=== PATIENT | female | born 1935 | race Caucasian/White ===

== ENCOUNTER 2016-08-05 08:21 | Outpatient (RCR) | payer MEDICARE, OTHER ==
[~2016-08-05 08:21] MED LIST: ALBU17AE3 IH; BNZ10T PO; CALTRATE 600 +1 EACH PO; FLUT12AE4 IH; MNTL10T PO; MULT-963 PO
[2016-08-05 09:44] LABS: BASOPHILS # (AUTO) 0.1 10^3/uL (0.0-0.1); BASOPHILS % (AUTO) 1 % (0-10); EOSINOPHILS # (AUTO) 0.3 10^3/uL (0.0-0.3); EOSINOPHILS % (AUTO) 4 % (0-10); LYMPHOCYTES # (AUTO) 1.6 X 10^3 (1.0-4.0); LYMPHOCYTES % (AUTO) 23 % (12-44); MEAN CORPUSCULAR HEMOGLOBIN 29 PG (25-34); MEAN CORPUSCULAR HGB CONC 32 G/DL (32-36); MEAN CORPUSCULAR VOLUME 91 FL (80-99); MONOCYTES # (AUTO) 0.5 X 10^3 (0.0-1.0); MONOCYTES % (AUTO) 7 % (0-12); NEUTROPHILS # (AUTO) 4.6 X 10^3 (1.8-7.8); NEUTROPHILS % (AUTO) 65 % (42-75); PLATELET COUNT 261 10^3/uL (130-400); RED CELL DISTRIBUTION WIDTH 13.8 % (10.0-14.5); WHITE BLOOD COUNT 7.1 10^3/uL (4.3-11.0)
[2016-08-05 10:12] LABS: ALBUMIN 4.2 G/DL (3.2-4.5); BILIRUBIN,TOTAL 0.6 MG/DL (0.1-1.0); CALCIUM 9.9 MG/DL (8.5-10.1); CREATININE SERUM 0.97 MG/DL (0.60-1.30); POTASSIUM 4.4 MMOL/L (3.6-5.0); TOTAL PROTEIN 6.5 G/DL (6.4-8.2)
== END 2016-11-03 | disposition home or self-care (01) ==
LOC: ONC 08:21
PROVIDERS: ATTEND Internal Medicine Hematology & Oncology
DX: Z08 Encounter for follow-up examination after completed treatment for malignant neoplasm (principal); Z85.3 Personal history of malignant neoplasm of breast; I10 Essential (primary) hypertension; E78.5 Hyperlipidemia, unspecified; J45.909 Unspecified asthma, uncomplicated; Z90.11 Acquired absence of right breast and nipple; E66.9 Obesity, unspecified; Z68.37 Body mass index [BMI] 37.0-37.9, adult; Z79.899 Other long term (current) drug therapy
CPT/HCPCS: 36415; 80053; 85025; 86300; 99213

== ENCOUNTER → 2017-01-14 | Outpatient (CLI) | payer MEDICARE, OTHER ==
--- NOTE | 2017-01-14 10:55 | Diagnostic Imaging Report ---
INDICATION: Ultrasound of the aorta. INDICATION: Hypertension. FINDINGS: The proximal abdominal aorta is obscured by bowel gas. The mid abdominal aorta is 2.1 and distally is 2.3. The right common iliac is 1.1 and the left common iliac artery is 1.1 cm in caliber. Color Doppler demonstrates patency. IMPRESSION: No evidence of aneurysm. Dictated by: Dictated on workstation # [id number]
== END ==
LOC: RAD 09:01
DX: I10 Essential (primary) hypertension (principal)
CPT/HCPCS: 76775

== ENCOUNTER → 2017-08-04 | Outpatient (CLI) | payer MEDICARE, OTHER ==
--- NOTE | 2017-08-04 14:30 | Diagnostic Imaging Report ---
EXAMINATION: Left breast diagnostic mammogram with tomography. The current study was also evaluated with a Computer Aided Detection (CAD) system. COMPARISON: 08/02/2016. INDICATION: Followup focal asymmetry in the outer aspect of the left breast. FINDINGS: The previously seen focal asymmetry in the outer aspect of the left breast posteriorly is similar to the previous exam measuring about 1 cm with suggestion of central lucency. This may relate to an intramammary lymph node. No change from the previous study is seen. Scattered fibroglandular densities are noted. Benign appearing calcifications are seen. IMPRESSION: Stable likely benign nodule along the outer aspect of the left breast with central lucency, in favor of an intramammary lymph node. A followup mammogram in 12 months is recommended to ensure longer term stability. ACR BI-RADS Category 3: Probably benign findings. Result letter will be mailed to the patient. Note: At least 10% of breast cancer is not imaged by mammography. Dictated by: Dictated on workstation # [id number]
== END ==
LOC: RAD 12:27
PROVIDERS: ATTEND Internal Medicine Hematology & Oncology
DX: N63.20 Unspecified lump in the left breast, unspecified quadrant (principal); Z85.3 Personal history of malignant neoplasm of breast

== ENCOUNTER 2017-08-07 08:32 | Outpatient (RCR) | payer MEDICARE, OTHER ==
[2017-08-07 09:03] LABS: BASOPHILS # (AUTO) 0.1 10^3/uL (0.0-0.1); BASOPHILS % (AUTO) 1 % (0-10); EOSINOPHILS # (AUTO) 0.2 10^3/uL (0.0-0.3); EOSINOPHILS % (AUTO) 4 % (0-10); HEMATOCRIT 38 % (35-52); HEMOGLOBIN 12.6 G/DL (11.5-16.0); LYMPHOCYTES # (AUTO) 1.8 X 10^3 (1.0-4.0); LYMPHOCYTES % (AUTO) 28 % (12-44); MEAN CORPUSCULAR HEMOGLOBIN 30 PG (25-34); MEAN CORPUSCULAR HGB CONC 33 G/DL (32-36); MEAN CORPUSCULAR VOLUME 89 FL (80-99); MEAN PLATELET VOLUME 10.5 FL (7.4-10.4); MONOCYTES # (AUTO) 0.5 X 10^3 (0.0-1.0); MONOCYTES % (AUTO) 8 % (0-12); NEUTROPHILS # (AUTO) 3.8 X 10^3 (1.8-7.8); NEUTROPHILS % (AUTO) 60 % (42-75); PLATELET COUNT 240 10^3/uL (130-400); RED BLOOD COUNT 4.22 10^6/uL (4.35-5.85); RED CELL DISTRIBUTION WIDTH 13.3 % (10.0-14.5); WHITE BLOOD COUNT 6.4 10^3/uL (4.3-11.0)
[2017-08-07 09:25] LABS: ALBUMIN 4.1 GM/DL (3.2-4.5); BILIRUBIN,TOTAL 0.7 MG/DL (0.1-1.0); CALCIUM 10.3 MG/DL (8.5-10.1); CREATININE SERUM 0.98 MG/DL (0.60-1.30); POTASSIUM 4.4 MMOL/L (3.6-5.0); TOTAL PROTEIN 6.6 GM/DL (6.4-8.2)
== END 2017-11-05 | disposition home or self-care (01) ==
LOC: ONC 08:32
PROVIDERS: ATTEND Internal Medicine Hematology & Oncology
DX: Z08 Encounter for follow-up examination after completed treatment for malignant neoplasm (principal); Z85.3 Personal history of malignant neoplasm of breast; I10 Essential (primary) hypertension; E78.5 Hyperlipidemia, unspecified; J45.909 Unspecified asthma, uncomplicated; Z90.11 Acquired absence of right breast and nipple; E66.9 Obesity, unspecified; Z68.37 Body mass index [BMI] 37.0-37.9, adult; Z79.899 Other long term (current) drug therapy
CPT/HCPCS: 36415; 80053; 85025

== ENCOUNTER → 2018-07-23 | Outpatient (CLI) | payer MEDICARE, BC, OTHER ==
--- NOTE | 2018-07-23 08:28 | Diagnostic Imaging Report ---
Indication: 12 month followup of left breast density. Correlation is made with prior mammogram from 08/04/2017 and 08/02/2016. 2-D and 3-D unilateral left diagnostic mammography was performed with CAD. Scattered fibroglandular densities in the left breast are noted. Area of density in the upper and outer left breast posterior depth appears stable. This appears less prominent on today's study may represent fibroglandular tissue. No mass or malignant-appearing microcalcifications are seen. Extensive vascular calcifications in the left breast are noted. Left axilla is unremarkable. Impression: BI-RADS category 2 Stable left mammogram. No mammographic features suspicious for malignancy are identified. Patient may return to routine annual screening. ACR BI-RADS Category 2: Benign findings. Result letter will be mailed to the patient. Note: At least 10% of breast cancer is not imaged by mammography. Dictated by: Dictated on workstation # [id number]
== END ==
LOC: RAD 07:31
DX: N63.20 Unspecified lump in the left breast, unspecified quadrant (principal); R92.2 Inconclusive mammogram

== ENCOUNTER → 2019-03-03 | Outpatient (CLI) | payer MEDICARE, BC, OTHER ==
[~2019-03-03] VITALS: Ht 165.1 cm; Wt 87.1 kg
[~2019-03-03] MED LIST changes: +NS IV 1000 ML 1,000 ML IV ONE; +NS IV 1000 ML 1,000 ML ONE
[2019-03-03 13:00] VITALS: BP 131/70
== END ==
LOC: SDC 12:52
DX: E87.1 Hypo-osmolality and hyponatremia (principal)
CPT/HCPCS: 96360

== ENCOUNTER → 2019-03-03 | Outpatient (CLI) | payer MEDICARE, BC, OTHER ==
[~2019-03-03] MED LIST changes: -NS IV 1000 ML 1,000 ML IV ONE; -NS IV 1000 ML 1,000 ML ONE
--- NOTE | 2019-03-03 15:32 | Diagnostic Imaging Report ---
INDICATION: Cough and shortness of breath. FINDINGS: The heart size is within normal limits and stable when compared to 01/30/2013. As noted on the prior exam, there is blunting of both costophrenic angles. This may well be secondary to pleural thickening as opposed to small effusions. There is no evidence for overt failure or pneumonia. There is a prominent 8.2 x 9.1 cm air-fluid level in the retrocardiac region. Most likely, this is secondary to a hiatal hernia. The mediastinum is not widened. The osseous structures are intact. IMPRESSION: 1. The blunted appearance of the costophrenic angles is more likely due to pleural thickening than to small effusions. There is no acute cardiopulmonary abnormality noted otherwise. 2. There is a prominent hiatal hernia. Dictated by: Dictated on workstation # [id number]
== END ==
LOC: RAD 14:45
DX: K44.9 Diaphragmatic hernia without obstruction or gangrene (principal); R06.2 Wheezing; R06.02 Shortness of breath
CPT/HCPCS: 71046

== ENCOUNTER → 2019-08-11 | Outpatient (CLI) | payer MEDICARE, BC, OTHER | LOC: CARD 08:47 | PROVIDERS: ATTEND Internal Medicine Interventional Cardiology | DX: I08.3 Combined rheumatic disorders of mitral, aortic and tricuspid valves (principal); I11.9 Hypertensive heart disease without heart failure; I48.19 Other persistent atrial fibrillation; E78.5 Hyperlipidemia, unspecified | CPT/HCPCS: 93306 ==

== ENCOUNTER → 2019-08-11 | Outpatient (CLI) | payer MEDICARE, BC, OTHER ==
--- NOTE | 2019-08-11 11:46 | Diagnostic Imaging Report ---
INDICATION: Routine screening. Comparison is made with prior mammogram from 07/23/2018 and 08/04/2017. Unilateral left 2-D and 3-D screening mammography was performed with CAD. Scattered fibroglandular densities are identified in the left breast. Extensive vascular calcifications of the left breast are noted. There are occasional benign parenchymal calcifications as well. No mass or malignant appearing microcalcifications are seen. Left axilla is unremarkable. IMPRESSION: BI-RADS Category 2 No mammographic features suspicious for malignancy are identified. ACR BI-RADS Category 2: Benign findings. Result letter will be mailed to the patient. Note: At least 10% of breast cancer is not imaged by mammography. Dictated by: Dictated on workstation # [id number]
== END ==
LOC: RAD 08:55
DX: Z12.31 Encounter for screening mammogram for malignant neoplasm of breast (principal)

== ENCOUNTER → 2020-08-14 | Outpatient (CLI) | payer MEDICARE, BC, OTHER ==
--- NOTE | 2020-08-14 10:42 | Diagnostic Imaging Report ---
INDICATION: Screening. The current study was also evaluated with a Computer Aided Detection (CAD) system. 3-D Tomographic imaging was also performed. Comparison made with prior examination of 08/11/2019, 07/23/2018, 08/04/2017 FINDINGS: There are scattered fibroglandular densities in the left breast. There are extensive vascular calcifications. They are benign type calcifications. There is no dominant mass, spiculated lesions or suspicious calcification identified. Skin, nipples and axillary unremarkable. IMPRESSION: Category 2 benign. ACR BI-RADS Category 2: Benign findings. Result letter will be mailed to the patient. Note: At least 10% of breast cancer is not imaged by mammography. Dictated by: Dictated on workstation # [id number]
== END ==
LOC: RAD 08:54
DX: Z12.31 Encounter for screening mammogram for malignant neoplasm of breast (principal)
CPT/HCPCS: 77063

== ENCOUNTER → 2021-12-19 | Outpatient (CLI) | payer MEDICARE, BC, OTHER ==
[2021-12-19 09:30] LABS: BASOPHILS # (AUTO) 0.1 10^3/uL (0.0-0.1); BASOPHILS % (AUTO) 1 % (0-10); EOSINOPHILS # (AUTO) 0.5 10^3/uL (0.0-0.3); EOSINOPHILS % (AUTO) 5 % (0-10); HEMATOCRIT 40 % (35-52); HEMOGLOBIN 12.7 g/dL (11.5-16.0); LYMPHOCYTES # (AUTO) 2.6 10^3/uL (1.0-4.0); LYMPHOCYTES % (AUTO) 24 % (12-44); MEAN CORPUSCULAR HEMOGLOBIN 28 pg (25-34); MEAN CORPUSCULAR HGB CONC 32 g/dL (32-36); MEAN CORPUSCULAR VOLUME 90 fL (80-99); MEAN PLATELET VOLUME 10.9 fL (9.0-12.2); MONOCYTES # (AUTO) 0.8 10^3/uL (0.0-1.0); MONOCYTES % (AUTO) 7 % (0-12); NEUTROPHILS # (AUTO) 6.6 10^3/uL (1.8-7.8); NEUTROPHILS % (AUTO) 63 % (42-75); PLATELET COUNT 230 10^3/uL (130-400); WHITE BLOOD COUNT 10.5 10^3/uL (4.3-11.0)
[2021-12-19 09:51] LABS: ALBUMIN 4.1 GM/DL (3.2-4.5); BILIRUBIN,TOTAL 0.6 MG/DL (0.1-1.0); CALCIUM 10.4 MG/DL (8.5-10.1); CREATININE SERUM 1.03 MG/DL (0.60-1.30); POTASSIUM 3.8 MMOL/L (3.6-5.0); TOTAL PROTEIN 6.6 GM/DL (6.4-8.2)
== END ==
LOC: LAB 09:06
DX: I10 Essential (primary) hypertension (principal); I48.91 Unspecified atrial fibrillation; R06.02 Shortness of breath; E78.00 Pure hypercholesterolemia, unspecified
CPT/HCPCS: 36415; 80053; 80061; 80162; 85025

== ENCOUNTER 2022-05-31 21:19 | Emergency (ER) | payer MEDICARE, BC, OTHER ==
[~2022-05-31] VITALS: Ht 165 cm; Wt 48.0 kg
--- NOTE | 2022-05-31 21:37 | ED GI ---
General Stated Complaint: VOMITING BLOOD History of Present Illness Date Seen by Provider: May 31, 2022 Time Seen by Provider: 21:37 Initial Comments 86 yr F with PMH of Asthma/ mastectomy/ dysphagia/ heart murnur, is here with c/o 1 episode of vomiting blood today evening. Pt states she always feels like something is stuck when she eats, and do to this, she reduced her food intake and has lost approximately 80 lbs in the past 1 year. Today she had some barbecue beans and cornbread for dinner and vomited after, and she noticed blood in the vomit. She is unable to say how much blood or describe it.Denies dizziness, chest pain, blood in stool or urine, abdominal pain, diarrhea, fever, cough. Allergies and Home Medications Allergies Coded Allergies: codeine (Verified Allergy, Mild, 11/29/05) ibuprofen (Unverified Adverse Reaction, Unknown, 03/03/19) Patient Home Medication List Home Medication List Reviewed: Yes Albuterol (Proventil) 17 Gm Inh, 2 SPRAY IH PRN, (Reported) Entered as Reported by: MYRNA MASSEY on 01/30/13 1233 Benazepril Hcl (Lotensin 10 Mg) 10 Mg Tablet, 10 MG PO DAILY, (Reported) Entered as Reported by: MYRNA MASSEY on 01/30/13 1233 Calcium Carbonate/Vitamin D3 (Caltrate 600 + D Chewable Tab) 1 Each Tab.chew, 1 EACH PO DAILY, (Reported) Entered as Reported by: MYRNA MASSEY on 01/30/13 1233 Fluticasone/Salmeterol (Advair Hfa 115-21 Mcg Inhaler) 12 Gm Aer.w.adap, 2 PUFF IH BID, (Reported) Entered as Reported by: MYRNA MASSEY on 01/30/13 1233 Montelukast Sodium (Singulair 10 Mg) 10 Mg Tablet, 1 TAB PO DAILY, (Reported) Entered as Reported by: MYRNA MASSEY on 01/30/13 1233 Multivitamin (Multi-Vitamin Daily) 1 Each Tablet, 1 EACH PO DAILY, (Reported) Entered as Reported by: MYRNA MASSEY on 01/30/13 1233 Review of Systems Review of Systems Constitutional: no symptoms reported EENTM: No Symptoms Reported Respiratory: No Symptoms Reported Cardiovascular: No Symptoms Reported Gastrointestinal: Other (hemetemesis) Genitourinary: No Symptoms Reported Musculoskeletal: no symptoms reported Skin: no symptoms reported Psychiatric/Neurological: No Symptoms Reported Endocrine: No Symptoms Reported Hematologic/Lymphatic: No Symptoms Reported Past Erhfvjv-Xzblzy-Zjqmls Hx Past Medical History Asthma Breast Physical Exam Vital Signs Vital Signs - First Documented 05/31/22 21:37 Temp 36.4 Pulse 61 Resp 16 B/P (MAP) 196/97 (130) Pulse Ox 94 O2 Delivery Room Air Capillary Refill : Height/Weight/BMI Height: 5'5.00" Weight: 192lbs. 0.0oz. 87.775080zb; BMI Method:Stated General Appearance: WD/WN, no apparent distress HEENT: PERRL/EOMI, normal ENT inspection Neck: non-tender, full range of motion, supple, normal inspection Respiratory: chest non-tender, lungs clear, normal breath sounds Cardiovascular: normal peripheral pulses, regular rate, rhythm Gastrointestinal: normal bowel sounds, non tender, soft, no organomegaly, no pulsatile mass Extremities: normal range of motion Back: normal inspection, no CVA tenderness, no vertebral tenderness Neurologic/Psychiatric: alert, normal mood/affect, oriented x 3 Skin: normal color Lymphatic: no adenopathy Progress/Results/Core Measures Results/Orders Lab Results Laboratory Tests Test 05/31/22 21:43 Range/Units White Blood Count 12.0 H 4.3-11.0 10^3/uL Red Blood Count 4.73 3.80-5.11 10^6/uL Hemoglobin 14.1 11.5-16.0 g/dL Hematocrit 43 35-52 % Mean Corpuscular Volume 91 80-99 fL Mean Corpuscular Hemoglobin 30 25-34 pg Mean Corpuscular Hemoglobin Concent 33 32-36 g/dL Red Cell Distribution Width 13.2 10.0-14.5 % Platelet Count 248 130-400 10^3/uL Mean Platelet Volume 10.9 9.0-12.2 fL Immature Granulocyte % (Auto) 0 % Neutrophils (%) (Auto) 82 H 42-75 % Lymphocytes (%) (Auto) 13 12-44 % Monocytes (%) (Auto) 4 0-12 % Eosinophils (%) (Auto) 1 0-10 % Basophils (%) (Auto) 1 0-10 % Neutrophils # (Auto) 9.8 H 1.8-7.8 10^3/uL Lymphocytes # (Auto) 1.6 1.0-4.0 10^3/uL Monocytes # (Auto) 0.4 0.0-1.0 10^3/uL Eosinophils # (Auto) 0.1 0.0-0.3 10^3/uL Basophils # (Auto) 0.1 0.0-0.1 10^3/uL Immature Granulocyte # (Auto) 0.0 0.0-0.1 10^3/uL Prothrombin Time 13.1 12.2-14.7 SEC INR Comment 1.0 0.8-1.4 Activated Partial Thromboplast Time 28 24-35 SEC D-Dimer 0.60 H 0.00-0.49 UG/ML Sodium Level 140 135-145 MMOL/L Potassium Level 4.4 3.6-5.0 MMOL/L Chloride Level 95 L 98-107 MMOL/L Carbon Dioxide Level 30 21-32 MMOL/L Anion Gap 15 H 5-14 MMOL/L Blood Urea Nitrogen 13 7-18 MG/DL Creatinine 1.06 0.60-1.30 MG/DL Estimat Glomerular Filtration Rate 51 BUN/Creatinine Ratio 12 Glucose Level 132 H 70-105 MG/DL Calcium Level 10.9 H 8.5-10.1 MG/DL Corrected Calcium 8.5-10.1 MG/DL Magnesium Level 2.0 1.6-2.4 MG/DL Total Bilirubin 0.7 0.1-1.0 MG/DL Aspartate Amino Transf (AST/SGOT) 24 5-34 U/L Alanine Aminotransferase (ALT/SGPT) 16 0-55 U/L Alkaline Phosphatase 75 40-136 U/L Total Protein 7.8 6.4-8.2 GM/DL Albumin 4.7 H 3.2-4.5 GM/DL Serum Alcohol < 10 <10 MG/DL My Orders Orders - MENA REAVES MD Chest 1 View, Ap/Pa Only (05/31/22 21:38) Alcohol (05/31/22 21:38) Cbc With Automated Diff (05/31/22 21:38) Comprehensive Metabolic Panel (05/31/22 21:38) Fibrin Degradation Products (05/31/22 21:38) Magnesium (05/31/22 21:38) Ua Culture If Indicated (05/31/22 21:38) Type And Screen (05/31/22 21:38) Occult Blood Stool (05/31/22 21:39) Pantoprazole Injection (Protonix Injecti (05/31/22 22:00) Ns (Ivpb) (Sodium C... W/Pantoprazole In (05/31/22 21:50) Protime With Inr (05/31/22 22:57) Partial Thromboplastin Time (05/31/22 22:57) Ct [facility]iley Chest/Noang Abd-Pelv W (05/31/22 22:59) Iohexol Injection (Omnipaque 350 Mg/Ml 1 (06/01/22 01:45) Received Contrast (Hold Metformin- Contr (06/01/22 01:45) Ns (Ivpb) (Sodium Chloride 0.9% Ivpb Bag (06/01/22 01:45) Medications Given in ED Current Medications Medications Dose Ordered Sig/Tari Route Start Time Stop Time Status Last Admin Dose Admin Iohexol 100 ml ONCE ONCE IV 06/01/22 01:45 06/01/22 01:48 DC 06/01/22 01:37 60 ML Pantoprazole 40 mg ONCE ONCE IV 05/31/22 22:00 05/31/22 22:01 DC 05/31/22 22:20 40 MG Sodium Chloride 100 ml ONCE ONCE IV 06/01/22 01:45 06/01/22 01:48 DC 06/01/22 01:37 80 ML Vital Signs/I&O 05/31/22 05/31/22 06/01/22 21:37 23:04 01:00 Temp 36.4 Pulse 61 59 65 Resp 16 18 16 B/P (MAP) 196/97 (130) 178/78 (111) 158/80 (106) Pulse Ox 94 93 93 O2 Delivery Room Air Room Air Room Air Progress Progress Note : Progress Note 1. UPPER GI BLEED work up: HIATAL HERNIA - CXR: unremarkable - CT ABD & PELVIS: Hiatal hernia, otherwise unremarkable - UA normal - CBC: Hb is stable - CMP unremarkable - Protonix bolus and drip in ER - FOB negative - Likely not a true GI bleed - Follow up with surgery clinic in 3 to 7 days and with PCP within 7 days - Adequate hydration advised - Protonix prescription for 14 days -The patient was seen in the ED, and treated appropriately to presentation at a specific point in time. Patient is informed that there is a possibility that disease and illness can evolve and change in acuity rapidly or slowly after patient is discharged from the ER. Precautionary advice given to the patient for immediate return to ER if symptoms worsen or do not resolve, and to seek emergency care sooner rather than later. Pt also advised on the importance of PCP follow up and compliance with management and follow up plan with PCP and/or specialist, as this is part of the management plan. Pt verbally expressed understanding. 2. ELEVATED D-DIMER: RULE OUT MASS IN ESOPHAGUS - D-dimer is slightly elevated:0.60 - CTA CHEST negative for PE and only shows a hiatal hernia Diagnostic Imaging Diagonstic Imaging: Xray, CT Plain Films/CT/US/NM/MRI: chest, abdomen Comments [facility] [place], [place] NAME: JO LOPEZ [facility] REC#: [id number] PT STATUS: REG ER : 1935 PHYSICIAN: MENA REAVES MD ADMIT DATE: 05/31/22/ER Draft Date of Exam:05/31/22 CHEST 1 VIEW, AP/PA ONLY INDICATION: Gastrointestinal bleeding. EXAMINATION: AP view of the chest was obtained. COMPARISON: Study of 03/03/2019. There is cardiomegaly with increase in pulmonary vascularity indicating venous congestion. There is mild increase in interstitial markings throughout the lungs that may be due to edema. Mild blunting of the costophrenic sulci may be chronic. IMPRESSION: Cardiomegaly and mild pulmonary venous congestion and possible interstitial edema. This may be on the basis of congestive heart failure or possible hypervolemia and clinical correlation would be of use. Dictated on workstation # [id number] Dict: 05/31/225 Trans: 05/31/222219 [facility] [id number] Interpreted by: KLAUDIA PEREA MD Electronically signed by: Departure Impression Primary Impression: Hiatal hernia Disposition: 01 HOME, SELF-CARE Condition: Stable Departure-Patient Inst. Referrals: LATASHA MEZA MD NO,LOCAL PHYSICIAN (PCP) Primary Care Physician Patient Instructions: Hiatal Hernia Add. Discharge Instructions: - Follow up with surgery clinic in 3 to 7 days and with PCP within 7 days - Adequate hydration advised - Protonix prescription for 14 days - Return to ER if symptoms do not improve Scripts Pantoprazole Sodium (Protonix) 40 Mg 40 MG PO DAILY for 14 Days, #14 TAB Prov: MENA REAVES MD 06/01/22 MENA REAVES MD May 31, 2022 21:37
[2022-05-31 21:50] LABS: BASOPHILS # (AUTO) 0.1 10^3/uL (0.0-0.1); BASOPHILS % (AUTO) 1 % (0-10); EOSINOPHILS # (AUTO) 0.1 10^3/uL (0.0-0.3); EOSINOPHILS % (AUTO) 1 % (0-10); HEMATOCRIT 43 % (35-52); HEMOGLOBIN 14.1 g/dL (11.5-16.0); LYMPHOCYTES # (AUTO) 1.6 10^3/uL (1.0-4.0); LYMPHOCYTES % (AUTO) 13 % (12-44); MEAN CORPUSCULAR HEMOGLOBIN 30 pg (25-34); MEAN CORPUSCULAR HGB CONC 33 g/dL (32-36); MEAN CORPUSCULAR VOLUME 91 fL (80-99); MEAN PLATELET VOLUME 10.9 fL (9.0-12.2); MONOCYTES # (AUTO) 0.4 10^3/uL (0.0-1.0); MONOCYTES % (AUTO) 4 % (0-12); NEUTROPHILS # (AUTO) 9.8 10^3/uL (1.8-7.8); NEUTROPHILS % (AUTO) 82 % (42-75); PLATELET COUNT 248 10^3/uL (130-400)
[2022-05-31] MEDS ORDERED: PANTOPRAZOLE INJECTION 200 MG in NS (IVPB) 100 ML IV STA (21:50)
[2022-05-31] MEDS ORDERED: PANTOPRAZOLE 40 MG (PROTONIX) VIAL IV ONE (22:00)
[2022-05-31 22:08] LABS: ALBUMIN 4.7 GM/DL (3.2-4.5); CHLORIDE 95 MMOL/L (98-107); POTASSIUM 4.4 MMOL/L (3.6-5.0); SODIUM 140 MMOL/L (135-145)
[2022-05-31 22:10] LABS: CALCIUM 10.9 MG/DL (8.5-10.1)
[2022-05-31 22:11] LABS: GLUCOSE 132 MG/DL (70-105); TOTAL PROTEIN 7.8 GM/DL (6.4-8.2)
[2022-05-31 22:12] LABS: BILIRUBIN,TOTAL 0.7 MG/DL (0.1-1.0); CARBON DIOXIDE 30 MMOL/L (21-32)
[2022-05-31 22:14] LABS: ALKALINE PHOSPHATASE 75 U/L (40-136); CREATININE SERUM 1.06 MG/DL (0.60-1.30); GFR ESTIMATED 51
[2022-05-31 22:15] LABS: BUN/CREATININE RATIO 12
[2022-05-31 22:17] LABS: ALANINE AMINOTRANSFERASE 16 U/L (0-55)
--- NOTE | 2022-05-31 22:20 | Diagnostic Imaging Report ---
INDICATION: Gastrointestinal bleeding. EXAMINATION: AP view of the chest was obtained. COMPARISON: Study of 03/03/2019. There is cardiomegaly with increase in pulmonary vascularity indicating venous congestion. There is mild increase in interstitial markings throughout the lungs that may be due to edema. Mild blunting of the costophrenic sulci may be chronic. IMPRESSION: Cardiomegaly and mild pulmonary venous congestion and possible interstitial edema. This may be on the basis of congestive heart failure or possible hypervolemia and clinical correlation would be of use. Dictated by: Dictated on workstation # [id number]
[2022-05-31 23:16] LABS: PROTHROMBIN TIME PATIENT 13.1 SEC (12.2-14.7)
[2022-06-01] MEDS ORDERED: NS 100 ML (IVPB) BAG IV ONE (01:45)
[2022-06-01] MEDS ORDERED: IOHEXOL 350 MG/ML 100 ML (OMNIPAQUE 350) VIAL IV ONE (01:45)
[2022-06-01] MEDS ORDERED: HOLD METFORMIN - RECEIVED CONTRAST 20 ML VIAL IV SCH (01:45)
[2022-06-01] MEDS ORDERED: PANT40SU PO (02:53)
[2022-06-01 02:56] VITALS: BP 171/100
--- NOTE | 2022-06-01 07:59 | Diagnostic Imaging Report ---
INDICATION: Chest pain or back pain, aortic dissection suspected CTA chest, abdomen and pelvis Thin axial sections through the chest, abdomen and pelvis are obtained following intravenous contrast bolus. Multiplanar MIP images were reconstructed and reviewed. All CT scans use one or more of the following dose optimizing techniques: automated exposure control, MA and/or KvP adjustment based on patient size and exam type or iterative reconstruction. Indication: Pain. No priors. CHEST: Pulmonary arterial branches widely patent. No filling defect. No PE. Atherosclerotic thoracic aorta is nonaneurysmal. There is heavy and severe coronary artery atherosclerotic vascular calcifications. There is a large retrocardiac gastric hernia. No pulmonary consolidation or convincing evidence for pulmonary edema. There is some slight scattered zones of subsegmental atelectasis. No suspicious lung mass. No thoracic adenopathy. No acute soft tissue or osseous chest wall pathology with apparent right mastectomy and axillary node dissection. No findings to suggest neoplastic recurrence. Liver, spleen, adrenals and pancreas unremarkable. The kidneys are unobstructed. No biliary dilatation. No gallstone. There is aortic atherosclerotic vascular calcifications with mild ectasia of the proximal infrarenal aorta 2.4 cm. No nak[place] aneurysm or acute appearing arterial pathology. No thrombus. No findings of end organ ischemia. There is noninflamed diverticulosis of the sigmoid colon. The urinary bladder had an unremarkable appearance. The uterus absent. There is no adnexal lesion. There is no abdominal, pelvic, mesenteric or retroperitoneal lymphadenopathy. There is no appendicitis or diverticulitis. No pneumatosis. No free air. There is no bowel obstruction or ileus. There is stool in the colon but the fecal load is not grossly pathologic. There is no acute bony abnormality. Degenerative changes at L4-L5 result in at least moderate canal and biforaminal stenoses on a chronic basis. IMPRESSION: CHEST: Negative for PE. Severe atherosclerotic aortic and coronary artery vascular calcifications. Prior surgery without evidence for neoplasm. Large hiatal hernia. No findings to suggest neoplasm. Abdomen pelvis: No obstructive features, inflammatory processes, evidence of metastases or acute abnormalities. Mild aortic atherosclerotic ectasia. Noninflamed diverticulosis. Hiatal hernia with no acute appearing abnormality. I agree with preliminary. Dictated by: Dictated on workstation # [id number]
== END 2022-06-01 02:59 | disposition home or self-care (01) ==
LOC: EDUNIT# 21:19 → ER 21:26
DX: K44.9 Diaphragmatic hernia without obstruction or gangrene (principal); R79.1 Abnormal coagulation profile; Z28.310 Unvaccinated for COVID-19
CPT/HCPCS: 71045; 71275; 74177; 80053; 82274; 83735; 85025; 85379; 85610; 85730; 86850; 86900; 86901; 99284; G0480; 36415; 80320

== ENCOUNTER 2022-06-01 08:24 | Inpatient (IN) | payer MEDICARE, BC, OTHER ==
[~2022-06-01] VITALS: Ht 165.1 cm; Wt 66.1 kg
[~2022-06-01 08:24] MED LIST changes: +PANT40SU PO
[2022-06-01] MEDS ORDERED: PANTOPRAZOLE 40 MG (PROTONIX) VIAL IV ONE (10:15)
[2022-06-01] MEDS ORDERED: ONDANSETRON 4 MG/2 ML (SDV) Z0FRAN IVP ONE (10:15)
[2022-06-01 10:33] LABS: BASOPHILS # (AUTO) 0.1 10^3/uL (0.0-0.1); BASOPHILS % (AUTO) 0 % (0-10); EOSINOPHILS % (AUTO) 0 % (0-10); HEMATOCRIT 43 % (35-52); HEMOGLOBIN 14.2 g/dL (11.5-16.0); LYMPHOCYTES % (AUTO) 5 % (12-44); MEAN CORPUSCULAR HEMOGLOBIN 30 pg (25-34); MEAN CORPUSCULAR HGB CONC 33 g/dL (32-36); MEAN CORPUSCULAR VOLUME 90 fL (80-99); MONOCYTES # (AUTO) 0.9 10^3/uL (0.0-1.0); MONOCYTES % (AUTO) 5 % (0-12); NEUTROPHILS # (AUTO) 17.6 10^3/uL (1.8-7.8); NEUTROPHILS % (AUTO) 90 % (42-75); PLATELET COUNT 229 10^3/uL (130-400); WHITE BLOOD COUNT 19.7 10^3/uL (4.3-11.0)
--- NOTE | 2022-06-01 10:42 | Diagnostic Imaging Report ---
INDICATION: Chest pain. Comparison is made with prior exam of 05/31/2022 FINDINGS: There is cardiomegaly. There is some bibasilar subsegmental atelectasis and/or pneumonitis. No pleural effusion or pneumothorax. The mediastinum is unremarkable. IMPRESSION: Cardiomegaly and some bibasal atelectasis and/or pneumonitis. Dictated by: Dictated on workstation # [id number]
[2022-06-01 10:43] LABS: ALBUMIN 4.8 GM/DL (3.2-4.5); CHLORIDE 94 MMOL/L (98-107); POTASSIUM 3.4 MMOL/L (3.6-5.0); SODIUM 139 MMOL/L (135-145)
[2022-06-01 10:44] LABS: CALCIUM 10.9 MG/DL (8.5-10.1)
[2022-06-01 10:45] LABS: GLUCOSE 131 MG/DL (70-105)
[2022-06-01 10:46] LABS: TOTAL PROTEIN 7.8 GM/DL (6.4-8.2)
[2022-06-01 10:47] LABS: BILIRUBIN,TOTAL 1.1 MG/DL (0.1-1.0); CARBON DIOXIDE 30 MMOL/L (21-32)
[2022-06-01 10:49] LABS: ALKALINE PHOSPHATASE 73 U/L (40-136); CREATININE SERUM 0.95 MG/DL (0.60-1.30); GFR ESTIMATED 59
[2022-06-01 10:50] LABS: BUN/CREATININE RATIO 16
[2022-06-01 10:52] LABS: ALANINE AMINOTRANSFERASE 16 U/L (0-55)
[2022-06-01 11:09] LABS: BASOPHILS % (MANUAL) 1 %; LYMPHOCYTES % (MANUAL) 3 %; MONOCYTES % (MANUAL) 6 %; NEUTROPHILS % (MANUAL) 86 %; RBC MORPH NORMAL; REACTIVE LYMPHOCYTES 4 %
[2022-06-01 11:50] LABS: OCCULT BLOOD,GASTRIC FLUID NEGATIVE (NEGATIVE)
--- NOTE | 2022-06-01 11:52 | ED General ---
General Chief Complaint: Upper Extremity Stated Complaint: LEFT SHOULDER PAIN Nursing Triage Note: PT ARRIVED VIA WHEELCHAIR WITH . PT STATES THAT SHE IS HAVING LEFT SHOULDER PAIN. PT WAS SEEN LAST NIGHT FOR HIATAL HERNIA. Source of Information: Patient, Old Records Exam Limitations: No Limitations History of Present Illness Date Seen by Provider: Jun 01, 2022 Time Seen by Provider: 09:50 Initial Comments This 86-year-old woman presents to the emergency room with primary complaint of left shoulder pain. The pain is not exacerbated by movement or palpation. It has been persistent since yesterday when she visited the ER for hematemesis. She was diagnosed with hiatal hernia by CT scan and was stable at that time. She continues to have coffee-ground emesis today. Patient is a poor historian. Based on review of chart she has history of breast cancer. I also discussed the situation with Dr. Kumar. He found clinic notes from a cardiac consultation with Dr. Kerr that notes history of atrial fibrillation. Patient had elected to forego anticoagulation at that time. Patient denies any chest pain at present. She reports her hematemesis has been a recurrent ongoing problem for years. Allergies and Home Medications Allergies Coded Allergies: codeine (Verified Allergy, Mild, 11/29/05) ibuprofen (Unverified Adverse Reaction, Unknown, 03/03/19) Patient Home Medication List Home Medication List Reviewed: Yes Albuterol (Proventil) 17 Gm Inh, 2 SPRAY IH PRN, (Reported) Entered as Reported by: MYRNA MASSEY on 01/30/13 1233 Benazepril Hcl (Lotensin 10 Mg) 10 Mg Tablet, 10 MG PO DAILY, (Reported) Entered as Reported by: MYRNA MASSEY on 01/30/13 1233 Calcium Carbonate/Vitamin D3 (Caltrate 600 + D Chewable Tab) 1 Each Tab.chew, 1 EACH PO DAILY, (Reported) Entered as Reported by: MYRNA MASSEY on 01/30/13 1233 Fluticasone/Salmeterol (Advair Hfa 115-21 Mcg Inhaler) 12 Gm Aer.w.adap, 2 PUFF IH BID, (Reported) Entered as Reported by: MYRNA MASSEY on 01/30/13 1233 Montelukast Sodium (Singulair 10 Mg) 10 Mg Tablet, 1 TAB PO DAILY, (Reported) Entered as Reported by: MYNRA MASSEY on 01/30/13 1233 Multivitamin (Multi-Vitamin Daily) 1 Each Tablet, 1 EACH PO DAILY, (Reported) Entered as Reported by: MYRNA MASSEY on 01/30/13 1233 Pantoprazole Sodium (Protonix) 40 Mg , 40 MG PO DAILY Prescribed by: MENA REAVES MD on 06/01/22 0253 Review of Systems Review of Systems Constitutional: no symptoms reported EENTM: no symptoms reported Respiratory: no symptoms reported Cardiovascular: see HPI Gastrointestinal: see HPI Genitourinary: no symptoms reported Musculoskeletal: see HPI Skin: no symptoms reported Psychiatric/Neurological: No Symptoms Reported Hematologic/Lymphatic: No Symptoms Reported Immunological/Allergic: no symptoms reported Past Dekocra-Cwgddn-Gjtyyu Hx Patient Social History Tobacco Use?: No Substance use?: No Alcohol Use?: No Immunizations Up To Date Influenza Vaccine Up-to-Date: No; Not Current First/Initial COVID19 Vaccinat: NA Second COVID19 Vaccination Sathish: NA Third COVID19 Vaccination Date: NA Past Medical History Surgery/Hospitalization HX: RIGHT MASTECTOMY, HTN, GERD, ESOPHAGEAL STRICTURE, COPD, ASTHMA Surgeries: Yes Breast (Mastectomy) Respiratory: Yes Asthma Cardiac: Yes Atrial Fibrillation, Hypertension Neurological: No : No Genitourinary: No Gastrointestinal: Yes (History esophageal strictures) Gastroesophageal Reflux, Hiatal Hernia Musculoskeletal: No Endocrine: No Cancer: Yes Breast Did You Recieve Any Treatments: Yes What Type of Treatment Did You: Surgical Intervention Integumentary: No Physical Exam Vital Signs Vital Signs - First Documented 06/01/22 08:45 Temp 35.8 Pulse 58 Resp 16 B/P (MAP) 190/99 (129) Pulse Ox 96 O2 Delivery Room Air Capillary Refill : Less Than 3 Seconds Height, Weight, BMI Height: 5'5.00" Weight: 192lbs. 0.0oz. 87.488639ut; 22.00 BMI Method:Stated General Appearance: No Apparent Distress, WD/WN HEENT: PERRL/EOMI, Normal ENT Inspection Neck: Normal Inspection; No JVD Respiratory: Lungs Clear, Normal Breath Sounds, No Accessory Muscle Use, No Respiratory Distress Cardiovascular: Regular Rate, Rhythm, No Edema, No Murmur Gastrointestinal: Normal Bowel Sounds, Soft; No Distended, No Tenderness Extremity: Normal Inspection, No Pedal Edema Neurologic/Psychiatric: Alert, Oriented x3, No Motor/Sensory Deficits, Normal Mood/Affect, Other (Poor historian) Skin: Normal Color, Warm/Dry Progress/Results/Core Measures Suspected Sepsis SIRS Temperature: Pulse: 58 Respiratory Rate: 16 Laboratory Tests 06/01/22 10:20: White Blood Count 19.7H Blood Pressure 190 /99 Mean: 129 Laboratory Tests 06/01/22 10:20: Creatinine 0.95, INR Comment 1.0, Platelet Count 229, Total Bilirubin 1.1H Results/Orders Lab Results Laboratory Tests Test 06/01/22 10:20 06/01/22 11:43 Range/Units White Blood Count 19.7 H 4.3-11.0 10^3/uL Red Blood Count 4.79 3.80-5.11 10^6/uL Hemoglobin 14.2 11.5-16.0 g/dL Hematocrit 43 35-52 % Mean Corpuscular Volume 90 80-99 fL Mean Corpuscular Hemoglobin 30 25-34 pg Mean Corpuscular Hemoglobin Concent 33 32-36 g/dL Red Cell Distribution Width 13.3 10.0-14.5 % Platelet Count 229 130-400 10^3/uL Mean Platelet Volume 11.0 9.0-12.2 fL Immature Granulocyte % (Auto) 0 % Neutrophils (%) (Auto) 90 H 42-75 % Lymphocytes (%) (Auto) 5 L 12-44 % Monocytes (%) (Auto) 5 0-12 % Eosinophils (%) (Auto) 0 0-10 % Basophils (%) (Auto) 0 0-10 % Neutrophils # (Auto) 17.6 H 1.8-7.8 10^3/uL Lymphocytes # (Auto) 1.0 1.0-4.0 10^3/uL Monocytes # (Auto) 0.9 0.0-1.0 10^3/uL Eosinophils # (Auto) 0.0 0.0-0.3 10^3/uL Basophils # (Auto) 0.1 0.0-0.1 10^3/uL Immature Granulocyte # (Auto) 0.1 0.0-0.1 10^3/uL Neutrophils % (Manual) 86 % Lymphocytes % (Manual) 3 % Monocytes % (Manual) 6 % Basophils % (Manual) 1 % Reactive Lymphocytes 4 % Blood Morphology Comment NORMAL Prothrombin Time 14.0 12.2-14.7 SEC INR Comment 1.0 0.8-1.4 Activated Partial Thromboplast Time 28 24-35 SEC Sodium Level 139 135-145 MMOL/L Potassium Level 3.4 L 3.6-5.0 MMOL/L Chloride Level 94 L 98-107 MMOL/L Carbon Dioxide Level 30 21-32 MMOL/L Anion Gap 15 H 5-14 MMOL/L Blood Urea Nitrogen 15 7-18 MG/DL Creatinine 0.95 0.60-1.30 MG/DL Estimat Glomerular Filtration Rate 59 BUN/Creatinine Ratio 16 Glucose Level 131 H 70-105 MG/DL Calcium Level 10.9 H 8.5-10.1 MG/DL Corrected Calcium 8.5-10.1 MG/DL Magnesium Level 2.0 1.6-2.4 MG/DL Total Bilirubin 1.1 H 0.1-1.0 MG/DL Aspartate Amino Transf (AST/SGOT) 21 5-34 U/L Alanine Aminotransferase (ALT/SGPT) 16 0-55 U/L Alkaline Phosphatase 73 40-136 U/L Myoglobin 102.5 H 10.0-92.0 NG/ML Troponin I 0.045 H <0.028 NG/ML C-Reactive Protein High Sensitivity 1.03 H 0.00-0.50 MG/DL Total Protein 7.8 6.4-8.2 GM/DL Albumin 4.8 H 3.2-4.5 GM/DL Digoxin Level 0.67 L 0.80-2.00 NG/ML Gastric Fluid Occult Blood NEGATIVE NEGATIVE My Orders Orders - ARON BAINS MD Cbc With Automated Diff (06/01/22 10:09) Magnesium (06/01/22 10:09) Chest 1 View, Ap/Pa Only (06/01/22 10:09) Ekg Tracing (06/01/22 10:09) Comprehensive Metabolic Panel (06/01/22 10:09) Myoglobin Serum (06/01/22 10:09) Protime With Inr (06/01/22 10:09) Partial Thromboplastin Time (06/01/22 10:09) O2 (06/01/22 10:09) Monitor-Rhythm Ecg Trace Only (06/01/22 10:09) Lipid Panel (06/02/22 06:00) Ed Iv/Invasive Line Start (06/01/22 10:09) Troponin I [place] (06/01/22 10:09) Ondansetron Injection (Zofran Injectio (06/01/22 10:15) Pantoprazole Injection (Protonix Injecti (06/01/22 10:15) Manual Differential (06/01/22 10:20) Hs C Reactive Protein (06/01/22 10:47) Digoxin (06/01/22 10:47) Occult Blood,Gastric Fluid (06/01/22 10:50) Ekg Tracing (06/01/22 10:50) Aspirin Enteric Coated Tablet (Ecotrin T (06/01/22 12:15) Heparin Drip 33478 Unit/500ml (Heparin (06/01/22 12:15) Ed Admission (Communication) (06/01/22 12:08) Medications Given in ED Current Medications Medications Dose Ordered Sig/Tari Route Start Time Stop Time Status Last Admin Dose Admin Aspirin 81 mg ONCE ONCE PO 06/01/22 12:15 06/01/22 12:16 DC 06/01/22 12:42 81 MG Heparin Sodium/ Dextrose 500 ml @ 0 mls/hr Q0M ONCE IV 06/01/22 12:15 06/01/22 12:16 DC 06/01/22 13:09 20 MLS/HR Ondansetron HCl 8 mg ONCE ONCE IVP 06/01/22 10:15 06/01/22 10:16 DC 06/01/22 10:34 8 MG Pantoprazole 80 mg ONCE ONCE IV 06/01/22 10:15 06/01/22 10:16 DC 06/01/22 10:34 80 MG Vital Signs/I&O 06/01/22 06/01/22 08:45 13:00 Temp 35.8 Pulse 58 Resp 16 B/P (MAP) 190/99 (129) Pulse Ox 96 96 O2 Delivery Room Air Room Air Capillary Refill : Less Than 3 Seconds Blood Pressure Mean: 129 Progress Note : Time: 11:55 Progress Note Patient was interviewed and examined. She was not found to have any suggestion of musculoskeletal abnormality on exam. Shoulder was nontender to palpation and pain was not reproducible or exacerbated by movement of the left upper extremity. For this reason cardiac work-up was pursued. She was found to have atrial fibrillation with some ST depression in V2. Troponin is slightly elevated. Heparin was initiated rather another form of anticoagulation because of presence of coffee gourd emesis. Gastric hemeoccult test was negative but we are exercising caution in this regard. We discussed codes status and patient elects to be full code. ECG EKG #1: EKG Time: 10:22 Rate: 52 Rhythm: A Fib/Flutter Comment Atrial fibrillation with mild bradycardia. Subtle ST changes with a more notable ST depression in lead V2. No ST elevation. No axis deviation. No other abnormal intervals. EKG #2: EKG Time: 11:00 Rate: 61 Rhythm: A Fib/Flutter Comment Rate controlled atrial fibrillation with no ST elevation. Subtle ST changes including a notable ST depression in V2. No other abnormal intervals or axis deviation. Diagnostic Imaging Diagonstic Imaging: Xray Plain Films/CT/US/NM/MRI: chest Comments NAME: JO LOPEZ [facility] REC#: [id number] PT STATUS: REG ER : 1935 PHYSICIAN: ARON BAINS MD ADMIT DATE: 06/01/22/ER Signed Date of Exam:06/01/22 CHEST 1 VIEW, AP/PA ONLY INDICATION: Chest pain. Comparison is made with prior exam of 05/31/2022 FINDINGS: There is cardiomegaly. There is some bibasilar subsegmental atelectasis and/or pneumonitis. No pleural effusion or pneumothorax. The mediastinum is unremarkable. IMPRESSION: Cardiomegaly and some bibasal atelectasis and/or pneumonitis. Dictated by: Dictated on workstation # [id number] Dict: 06/01/22 1039 Trans: 06/01/22 1154 [facility] [id number] Interpreted by: MISA HOPKINS MD Electronically signed by: MISA HOPKINS MD 06/01/22 1154 Reviewed: Reviewed by Me Departure Communication (Admissions) Time/Spoke to Admitting Phy: 12:05 Dr. Bell Time/Spoke to Consulting Phy: 10:43 Dr. Kumar Impression Primary Impression: NSTEMI (non-ST elevated myocardial infarction) Additional Impressions: Coffee ground emesis Left shoulder pain Qualified Codes: M25.512 - Pain in left shoulder Atrial fibrillation Qualified Codes: I48.91 - Unspecified atrial fibrillation Disposition: 09 ADMITTED INPATIENT Condition: Stable Admissions Decision to Admit Reason: Admit from ER (General) Decision to Admit/Date: Jun 01, 2022 Time/Decision to Admit Time: 10:43 Departure-Patient Inst. Referrals: NO,LOCAL PHYSICIAN (PCP/Family) Primary Care Physician ARON BAINS MD Jun 01, 2022 11:52
[2022-06-01] MEDS ORDERED: HEParin DRIP 25000 UNIT/500ML 500 ML IV ONE (12:15)
[2022-06-01] MEDS ORDERED: ASPIRIN E.C. 81 MG (ECOTRIN) TAB PO ONE (12:15)
[2022-06-01] MEDS ORDERED: ONDANSETRON 4 MG/2 ML (SDV) Z0FRAN IV PRN (13:15)
[2022-06-01] MEDS ORDERED: HEParin DRIP 25000 UNIT/500ML 500 ML IV SCH (13:15)
[2022-06-01 13:59] VITALS: BP 190/99
[2022-06-01 14:08] LABS: INR 1.1 (0.8-1.4); PROTHROMBIN TIME PATIENT 14.1 SEC (12.2-14.7)
[2022-06-01] MEDS ORDERED: RT-ALBUTEROL/IPRATROPIUM 3 ML (DUONEB) VIAL INH PRN (15:00)
--- NOTE | 2022-06-01 15:12 | History & Physical-Hospitalist ---
History of Present Illness HPI/Chief Complaint Patient is an 86-year-old female with a past medical history of paroxysmal atrial fibrillation, hypertension, GERD who presented to the emergency department due to shoulder pain. When I asked her if she had shoulder pain she said no and that is not why she came to the hospital. She does seem confused. When asked if she had vomited today she said no. When I informed her that she vomited in the emergency department and it was dark black she seems surprised by this. She denies any history of abnormal heart rhythms or atrial fibrillation at first but then states she may have been told this before. Ult imately she is unable to provide me much accurate history and history is obtained from the records. She does endorse history of recurrent vomiting for years. She told the emergency room that this was always bloody emesis and she told me it was phlegm. She was seen in the emergency department yesterday for hematemesis and was diagnosed with a hiatal hernia on CT scan. She was incidentally found to be in atrial fibrillation. Laboratory work-up revealed a normal hemoglobin of 14 but did show an elevated troponin. She was admitted to the ICU for further monitoring. Source: patient Date Seen 06/01/22 Time Seen by a Provider: 14:40 Attending Physician No,Local Physician PCP Admitting Physician: Carla Bell MD Attending Physician: Carla Bell MD Referring Physician Date of Admission Jun 01, 2022 at 13:05 Home Medications & Allergies Home Medications Reviewed patient Home Medication Reconciliation performed by pharmacy medication reconciliations regulatory and compliance technician and/or nursing. Patients Allergies have been reviewed. Allergies Allergies Coded Allergies codeine (Verified Allergy, Mild, 11/29/05) ibuprofen (Unverified Adverse Reaction, Unknown, 03/03/19) Past Pxpyblt-Ovjwgx-Voggmp Hx Patient Social History Employed/Student: retired Tobacco Use?: No Smoking Status: Former Smoker Use of E-Cig and/or Vaping dev: No Substance use?: No Alcohol Use?: No Pt feels they are or have been: No Immunizations Up To Date First/Initial COVID19 Vaccinat: NA Second COVID19 Vaccination Sathish: NA Tetanus Booster (TDap): Unknown Date of Pneumonia Vaccine: Jul 23, 2012 Current Status Advance Directives: No Communicates: Verbally Primary Language: Bahraini Preferred Spoken Language: Bahraini Is interpretation needed?: No Sensory deficits: Hearing impairment Implanted or Applied Medical D: None Past Medical History Surgeries: Breast (Mastectomy) Asthma Atrial Fibrillation, Hypertension Gastroesophageal Reflux, Hiatal Hernia Breast Did You Recieve Any Treatments: Yes What Type of Treatment Did You: Surgical Intervention Family Medical History Reviewed Nursing Family Hx No Pertinent Family Hx Review of Systems Constitutional: see HPI Physical Exam Physical Exam Vital Signs Vital Signs - First Documented 06/01/22 06/01/22 06/01/22 08:45 13:59 21:44 Temp 35.8 Pulse 58 Resp 16 B/P (MAP) 190/99 (129) Pulse Ox 96 O2 Delivery Room Air O2 Flow Rate 2.00 FiO2 21 Capillary Refill : Less Than 3 Seconds Height, Weight, BMI Height: 5'5.00" Weight: 192lbs. 0.0oz. 87.080832oa; 22.41 BMI Method:Stated General Appearance: No Apparent Distress, Chronically ill, Thin HEENT: PERRL/EOMI, Moist Mucous Membranes; No Scleral Icterus (L), No Scleral Icterus (R) Neck: Normal Inspection, Supple Respiratory: Lungs Clear, No Accessory Muscle Use, No Respiratory Distress Cardiovascular: Regular Rate, Rhythm, No JVD, Diastolic Murmur Gastrointestinal: Normal Bowel Sounds, Non Tender, Soft Extremity: Normal Capillary Refill, No Calf Tenderness, No Pedal Edema Neurologic/Psychiatric: Alert, Normal Mood/Affect, Other (oriented to person and place but not much else, very confused regarding history) Results Results/Procedures Labs Laboratory Tests 06/01/22 10:20 06/02/22 04:57 Patient resulted labs reviewed. Imaging: Reviewed Imaging Report Imaging [facility] [place], [place] NAME: JO LOPEZ [facility] REC#: [id number] PT STATUS: REG ER : 1935 PHYSICIAN: ARON BAINS MD ADMIT DATE: 06/01/22/ER Signed Date of Exam:06/01/22 CHEST 1 VIEW, AP/PA ONLY INDICATION: Chest pain. Comparison is made with prior exam of 05/31/2022 FINDINGS: There is cardiomegaly. There is some bibasilar subsegmental atelectasis and/or pneumonitis. No pleural effusion or pneumothorax. The mediastinum is unremarkable. IMPRESSION: Cardiomegaly and some bibasal atelectasis and/or pneumonitis. Dictated by: Dictated on workstation # [id number] Dict: 06/01/22 1039 Trans: 06/01/22 1154 [facility] [id number] Interpreted by: MISA HOPKINS MD Electronically signed by: MISA HOPKINS MD 06/01/22 6447 Assessment/Plan Admission Diagnosis NSTEMI Admission Status: Inpatient Order (span 2 midnights) Reason for Inpatient Admission: see below Assessment and Plan NSTEMI Atrial fibrillation Cardiology consulted, appreciate recs ASA given Heparin gtt Trend troponin Telemetry Echo in 2019 showed preserved EF with mod/sever aortic regurg Hematemesis Hgb 14 Gastric occult negative but coffee ground emesis witnessed by ER MD Trend Dementia? Unsure of baseline mentation Conversation but inaccurate with history HTN Elevated on arrival but now improved Trend DVT ppx: Heparin gtt Diagnosis/Problems Diagnosis/Problems (1) NSTEMI (non-ST elevated myocardial infarction) Status: Acute (2) Coffee ground emesis Status: Acute (3) Atrial fibrillation Status: Acute Qualifiers: Atrial fibrillation type: unspecified Qualified Codes: I48.91 - Unspecified atrial fibrillation (4) Hiatal hernia Status: Acute CARLA BELL MD Jun 01, 2022 15:12
[2022-06-01] MEDS: NS IV 1000 ML 1,000 ML IV SCH ×2 (17:30→23:24)
--- NOTE | 2022-06-01 17:52 | Tele-ICU Consult ---
History of Present Illness History of Present Illness Date Seen by Provider: Jun 01, 2022 Time Seen by Provider: 17:52 Date of Admission (Tele-ICU Physician , consultation) Available chart/ vitals / labs / Images reviewed H&P is from ER notes Patient's information available about PMH, Shx, Fhx allergy reviewed inEMR. ROS as per chart and RN report Now in ICU, hemodynamically stable Video assessment done using teleICU camera, rest of exam as per RN Discussed with RN. Consultants: Hospital course: A/P NSTEMI - heparin gtt, ASA - cads consult - ECHO pending Atrial fibrillation - rate controlled - AC with heparin Hematemesis -Hgb stable, monitor on heparin Lines : , (Central Line Necessity Reviewed) Carter: OG: Nutrition: Analgesia: Anxiety/ delirium VTE Prophylaxis: Stress Ulcer Prophylaxis: Plans in collaboration with bedside consultants and IM MDs. Discussed with RN to reach out if any questions or concerns A total of 20 minutes of critical care time was devoted to this patient today, required to treat and/or prevent further deterioration of critical care condit ion ( as above Allergies and Home Medications Allergies Coded Allergies: codeine (Verified Allergy, Mild, 11/29/05) ibuprofen (Unverified Adverse Reaction, Unknown, 03/03/19) Home Medications Albuterol 17 Gm Inh, 2 SPRAY IH PRN, (Reported) Benazepril Hcl 10 Mg Tablet, 10 MG PO DAILY, (Reported) Calcium Carbonate/Vitamin D3 1 Each Tab.chew, 1 EACH PO DAILY, (Reported) Fluticasone/Salmeterol 12 Gm Aer.w.adap, 2 PUFF IH BID, (Reported) 2 PUFFS Montelukast Sodium 10 Mg Tablet, 1 TAB PO DAILY, (Reported) Multivitamin 1 Each Tablet, 1 EACH PO DAILY, (Reported) Pantoprazole Sodium 40 Mg Granpkt.dr, 40 MG PO DAILY Prescribed by: MENA REAVES MD on 06/01/22 0253 Past Medical/Social/Family Hx Patient Social History Employed/Student: retired Tobacco Use?: No Smoking Status: Former Smoker Use of E-Cig and/or Vaping dev: No Substance use?: No Alcohol Use?: No Pt stated abuse/neglect: No Immunizations Up To Date Influenza Vaccine Up-to-Date: No; Not Current First/Initial COVID19 Vaccinat: NA Second COVID19 Vaccination Sathish: NA Tetanus Booster (TDap): Unknown Date of Pneumonia Vaccine: Jul 23, 2012 Current Status Advance Directives: No Communicates: Verbally Primary Language: Egyptian Preferred Spoken Language: Egyptian Is interpretation needed?: No Sensory deficits: Hearing impairment Implanted or Applied Medical D: None Review of Systems Constitutional: see HPI Focused Exam Height, Weight, BMI Height: 5'5.00" Weight: 192lbs. 0.0oz. 87.380263xn; 22.41 BMI Method:Stated Exam Exam Patient acknowledged, consented, and participated in this virtual visit which was conducted using real time audio/video Vital Signs Date Time Temp Pulse Resp B/P (MAP) Pulse Ox O2 Delivery O2 Flow Rate FiO2 06/01/22 17:00 97 20 152/89 (110) 90 Room Air 06/01/22 16:00 79 145/79 (101) 93 Room Air 06/01/22 15:30 54 06/01/22 15:05 36.7 06/01/22 15:00 59 93 Room Air 06/01/22 14:00 81 26 90 Room Air 06/01/22 13:59 35.8 58 96 21 06/01/22 13:30 53 22 172/95 (120) 93 Room Air 06/01/22 13:20 103 155/76 06/01/22 08:45 35.8 58 16 190/99 (129) 96 Room Air Height & Weight Height: 5'5.00" Weight: 192lbs. 0.0oz. 87.066021ym; 22.41 BMI Method:Stated General Appearance: No Apparent Distress, Chronically ill, Thin HEENT: PERRL/EOMI, Moist Mucous Membranes; No Scleral Icterus (L), No Scleral Icterus (R) Neck: Normal Inspection, Supple Respiratory: Lungs Clear, No Accessory Muscle Use, No Respiratory Distress Cardiovascular: Regular Rate, Rhythm, No JVD, Diastolic Murmur Capillary Refill: Less Than 3 Seconds Extremity: Normal Capillary Refill, No Calf Tenderness, No Pedal Edema Neurologic/Psychiatric: Alert, Normal Mood/Affect, Other (oriented to person and place but not much else, very confused regarding history) Skin: Normal Color, Warm/Dry Results Lab Laboratory Tests 06/01/22 10:20 Assessment/Plan Assessment/Plan 1 PEGGY WARD MD Jun 01, 2022 17:52
[2022-06-01] MEDS: ACETAMINOPHEN 325 MG TABLET PO PRN (21:39)
[2022-06-01] MEDS: MELATONIN 3 MG TABLET PO PRN (21:39)
[2022-06-01] MEDS: RT-ALBUTEROL/IPRATROPIUM 3 ML (DUONEB) VIAL INH SCH (22:26)
[2022-06-02] MEDS: RT-ALBUTEROL/IPRATROPIUM 3 ML (DUONEB) VIAL INH SCH ×4 (02:56→21:20)
[2022-06-02] MEDS: NS IV 1000 ML 1,000 ML IV SCH ×4 (04:07→21:45)
[2022-06-02] MEDS: ACETAMINOPHEN 325 MG TABLET PO PRN ×2 (04:29→20:58)
[2022-06-02 05:24] LABS: HEMATOCRIT 38 % (35-52); HEMOGLOBIN 12.3 g/dL (11.5-16.0); MEAN CORPUSCULAR HEMOGLOBIN 30 pg (25-34); MEAN CORPUSCULAR HGB CONC 33 g/dL (32-36); MEAN CORPUSCULAR VOLUME 91 fL (80-99); MEAN PLATELET VOLUME 11.1 fL (9.0-12.2); PLATELET COUNT 197 10^3/uL (130-400); WHITE BLOOD COUNT 21.9 10^3/uL (4.3-11.0)
[2022-06-02 05:41] LABS: POTASSIUM 3.3 MMOL/L (3.6-5.0)
[2022-06-02 05:42] LABS: ALBUMIN 3.7 GM/DL (3.2-4.5)
[2022-06-02 05:43] LABS: CALCIUM 9.7 MG/DL (8.5-10.1)
[2022-06-02 05:44] LABS: TOTAL PROTEIN 5.9 GM/DL (6.4-8.2)
[2022-06-02 05:48] LABS: CREATININE SERUM 0.84 MG/DL (0.60-1.30)
[2022-06-02 05:51] LABS: MAGNESIUM 1.7 MG/DL (1.6-2.4)
[2022-06-02] MEDS ORDERED: POTASSIUM CL 10MEQ/50ML IVPB 200 ML IV ONE (05:56)
[2022-06-02] MEDS ORDERED: MAGNESIUM 1 GM/100 ML IVPB 200 ML IV ONE (05:56)
[2022-06-02] MEDS ORDERED: NS IV 500 ML 500 ML IV PRN (06:00)
[2022-06-02] MEDS: MAGNESIUM 1 GM/100 ML IVPB 100 ML IV SCH ×3 (06:09→06:51)
[2022-06-02] MEDS: KCL 20 MEQ TAB (K-DUR) PO SCH (06:09)
[2022-06-02] MEDS: POTASSIUM CL 10MEQ/50ML IVPB 50 ML IV SCH ×5 (06:09→08:15)
--- NOTE | 2022-06-02 09:39 | Consultation-Cardiology ---
HPI-Cardiology Cardiology Consultation Date of Consultation 06/02/22 Date of Admission Time Seen by Provider: 09:34 Indication: Chest pain HPI 86-year-old lady with chronic atrial fibrillation. Started to have nausea and vomiting for the past few days, came into the emergency room and reported coffee-ground emesis. She denied any chest pain but has been having persistent left shoulder pain below her left scapula. She has been having some neck pain. No shortness of breath. No palpitation. No syncope. She was noted to have an abnormal EKG with ST depression in V2 and mildly elevated troponin level. On my evaluation she was still having left shoulder pain. No chest pain. No shortness of breath Home Medications & Allergies Allergies: Coded Allergies: codeine (Verified Allergy, Mild, 11/29/05) ibuprofen (Unverified Adverse Reaction, Unknown, 03/03/19) Home Medication List Reviewed: Yes [id number] Hx Patient Social History Marital Status: Employed/Student: retired Smoking Status: Former Smoker Alcohol Use?: No Immunizations Up To Date Date of Pneumonia Vaccine: Jul 23, 2012 Past Medical History Discussed below Family Medical History Significant Family History: No Pertinent Family Hx Family Medical Hx Noncontributory Review of Systems-General Review of Systems Constitutional: no symptoms reported, see HPI, malaise EENTM: see HPI, no symptoms reported Respiratory: see HPI; No cough, No dyspnea on exertion, No hemoptysis, No orthopnea, No phlegm, No short of breath, No stridor, No wheezing, No other Cardiovascular: see HPI, other (Left shoulder pain) Gastrointestinal: see HPI, nausea, vomiting Genitourinary: no symptoms reported, see HPI Musculoskeletal: see HPI, joint pain Skin: no symptoms reported, see HPI Psychiatric/Neurological: No Symptoms Reported, See HPI Reviewed Test Results Reviewed Test Results Lab Laboratory Tests Test 06/01/22 10:20 06/01/22 11:43 06/01/22 13:45 06/01/22 17:42 Range/Units White Blood Count 19.7 H 4.3-11.0 10^3/uL Red Blood Count 4.79 3.80-5.11 10^6/uL Hemoglobin 14.2 11.5-16.0 g/dL Hematocrit 43 35-52 % Mean Corpuscular Volume 90 80-99 fL Mean Corpuscular Hemoglobin 30 25-34 pg Mean Corpuscular Hemoglobin Concent 33 32-36 g/dL Red Cell Distribution Width 13.3 10.0-14.5 % Platelet Count 229 130-400 10^3/uL Mean Platelet Volume 11.0 9.0-12.2 fL Immature Granulocyte % (Auto) 0 % Neutrophils (%) (Auto) 90 H 42-75 % Lymphocytes (%) (Auto) 5 L 12-44 % Monocytes (%) (Auto) 5 0-12 % Eosinophils (%) (Auto) 0 0-10 % Basophils (%) (Auto) 0 0-10 % Neutrophils # (Auto) 17.6 H 1.8-7.8 10^3/uL Lymphocytes # (Auto) 1.0 1.0-4.0 10^3/uL Monocytes # (Auto) 0.9 0.0-1.0 10^3/uL Eosinophils # (Auto) 0.0 0.0-0.3 10^3/uL Basophils # (Auto) 0.1 0.0-0.1 10^3/uL Immature Granulocyte # (Auto) 0.1 0.0-0.1 10^3/uL Neutrophils % (Manual) 86 % Lymphocytes % (Manual) 3 % Monocytes % (Manual) 6 % Basophils % (Manual) 1 % Reactive Lymphocytes 4 % Blood Morphology Comment NORMAL Prothrombin Time 14.0 14.1 12.2-14.7 SEC INR Comment 1.0 1.1 0.8-1.4 Activated Partial Thromboplast Time 28 33 117 *H 24-35 SEC Sodium Level 139 135-145 MMOL/L Potassium Level 3.4 L 3.6-5.0 MMOL/L Chloride Level 94 L 98-107 MMOL/L Carbon Dioxide Level 30 21-32 MMOL/L Anion Gap 15 H 5-14 MMOL/L Blood Urea Nitrogen 15 7-18 MG/DL Creatinine 0.95 0.60-1.30 MG/DL Estimat Glomerular Filtration Rate 59 BUN/Creatinine Ratio 16 Glucose Level 131 H 70-105 MG/DL Calcium Level 10.9 H 8.5-10.1 MG/DL Corrected Calcium 8.5-10.1 MG/DL Magnesium Level 2.0 1.6-2.4 MG/DL Total Bilirubin 1.1 H 0.1-1.0 MG/DL Aspartate Amino Transf (AST/SGOT) 21 5-34 U/L Alanine Aminotransferase (ALT/SGPT) 16 0-55 U/L Alkaline Phosphatase 73 40-136 U/L Myoglobin 102.5 H 10.0-92.0 NG/ML Troponin I 0.045 H <0.028 NG/ML C-Reactive Protein High Sensitivity 1.03 H 0.00-0.50 MG/DL Total Protein 7.8 6.4-8.2 GM/DL Albumin 4.8 H 3.2-4.5 GM/DL Digoxin Level 0.67 L 0.80-2.00 NG/ML Gastric Fluid Occult Blood NEGATIVE NEGATIVE Test 06/02/22 00:24 06/02/22 04:57 06/02/22 07:14 Range/Units Activated Partial Thromboplast Time 128 *H 139 *H 24-35 SEC White Blood Count 21.9 H 4.3-11.0 10^3/uL Red Blood Count 4.15 3.80-5.11 10^6/uL Hemoglobin 12.3 11.5-16.0 g/dL Hematocrit 38 35-52 % Mean Corpuscular Volume 91 80-99 fL Mean Corpuscular Hemoglobin 30 25-34 pg Mean Corpuscular Hemoglobin Concent 33 32-36 g/dL Red Cell Distribution Width 13.5 10.0-14.5 % Platelet Count 197 130-400 10^3/uL Mean Platelet Volume 11.1 9.0-12.2 fL Sodium Level 138 135-145 MMOL/L Potassium Level 3.3 L 3.6-5.0 MMOL/L Chloride Level 98 98-107 MMOL/L Carbon Dioxide Level 25 21-32 MMOL/L Anion Gap 15 H 5-14 MMOL/L Blood Urea Nitrogen 18 7-18 MG/DL Creatinine 0.84 0.60-1.30 MG/DL Estimat Glomerular Filtration Rate 68 BUN/Creatinine Ratio 21 Glucose Level 101 70-105 MG/DL Calcium Level 9.7 8.5-10.1 MG/DL Corrected Calcium 9.9 8.5-10.1 MG/DL Magnesium Level 1.7 1.6-2.4 MG/DL Total Bilirubin 1.0 0.1-1.0 MG/DL Aspartate Amino Transf (AST/SGOT) 18 5-34 U/L Alanine Aminotransferase (ALT/SGPT) 12 0-55 U/L Alkaline Phosphatase 55 40-136 U/L Troponin I 0.056 H <0.028 NG/ML Total Protein 5.9 L 6.4-8.2 GM/DL Albumin 3.7 3.2-4.5 GM/DL Triglycerides Level 68 <150 MG/DL Cholesterol Level 178 < 200 MG/DL LDL Cholesterol Direct 106 1-129 MG/DL VLDL Cholesterol 14 5-40 MG/DL HDL Cholesterol 60 40-60 MG/DL Physical Exam Physical Exam Vital Signs Vital Signs - First Documented 06/01/22 06/01/22 06/01/22 08:45 13:59 21:44 Temp 35.8 Pulse 58 Resp 16 B/P (MAP) 190/99 (129) Pulse Ox 96 O2 Delivery Room Air O2 Flow Rate 2.00 FiO2 21 Capillary Refill : Less Than 3 Seconds Height, Weight, BMI Height: 5'5.00" Weight: 192lbs. 0.0oz. [id number]; 25.57 BMI Method:Stated General Appearance: No Apparent Distress, WD/WN Eyes: Bilateral Eye Normal Inspection, Bilateral Eye PERRL, Bilateral Eye EOMI HEENT: PERRL/EOMI, Normal ENT Inspection Neck: Normal Inspection; No JVD Respiratory: Lungs Clear, Normal Breath Sounds, No Accessory Muscle Use, No Respiratory Distress Cardiovascular: Regular Rate, Rhythm, No Edema, No Murmur Gastrointestinal: Normal Bowel Sounds, Soft; No Distended, No Tenderness Back: Normal Inspection, No CVA Tenderness, No Vertebral Tenderness Extremity: Normal Inspection, No Pedal Edema Neurologic/Psychiatric: Alert, Oriented x3, No Motor/Sensory Deficits, Normal Mood/Affect, Other (Poor historian) Skin: Normal Color, Warm/Dry Lymphatic: No Adenopathy A/P-Cardiology Admission Diagnosis Non-ST elevation myocardial infarction Permanent atrial fibrillation Aortic valve stenosis Nausea and vomiting Assessment/Plan Non-ST elevation myocardial infarction, mildly elevated troponin level, EKG showing ST depression in V2. Nonspecific findings EKG today was better. Discussed with the patient and family management plan, offered medical therapy versus cardiac catheterization Decided to proceed with cardiac catheterization possible PTCA Chronic permanent atrial fibrillation, rate controlled. Patient has been refusing anticoagulation she was offered ablation in the past and she has refused it. Conservative management at this point Aortic stenosis murmur, I will evaluate 2D echocardiogram Nausea and vomiting. Reporting coffee-ground emesis H&H has been stable Tolerating heparin drip, managed by primary care physician Leukocytosis, worsening. Managed by primary care physician Left shoulder pain, having significant discomfort below her left scapula, the actual shoulder does not cause any significant pain with movement. Has been having neck pain. Consider evaluating MRI of the shoulder Hypertension, monitor blood pressure KAROLINE RAMIREZ MD Jun 02, 2022 09:39
--- NOTE | 2022-06-02 09:40 | Cardiac Procedure Note-CS/ASA ---
Pre-Procedure Note Pre-Op Procedure Note Date of Available H&P: Jun 02, 2022 Date H&P Reviewed: Jun 02, 2022 Time H&P Reviewed: 09:40 History & Physical: H&P Reviewed, Patient Examed, No changes noted Pre-Operative Diagnosis: Non-ST elevation myocardial infarction Conscious Sedation Pre-Proced Time 09:40 ASA Score 3 For ASA 3 and 4: Consider anesthesia and medical clearance. Also, for patients with a history of failed moderate sedation consider anesthesia. Airway Lungs Heart ASA score ASA 1: a normal healthy patient ASA 2: a patient with a mild systemic disease (mid diabetes, controlled hypertension, obesity ASA 3: a patient with a severe systemic disease that limits activity (angina, COPD, prior Myocardial infarction) ASA 4: a patient with an incapacitating disease that is a constant threat to life (CHF, renal failure) ASA 5: a moribund patient not expected to survive 24 hrs. (ruptured aneurysm) ASA 6: a declared brain- patient whose organs are being harvested. For emergent operations, add the letter E after the classification Mallampati Classification Grade 3 Sedation Plan Analgesia, Amnesia, Plan communicated to team members, Discussed options with patient/fam, Discussed risks with patient/fam The patient is an appropriate candidate to undergo the planned procedure, sedation, and anesthesia. The patient immediately re-assessed prior to indication. KAROLINE RAMIREZ MD Jun 02, 2022 09:40
--- NOTE | 2022-06-02 09:47 | Progress Note - Hospitalist ---
Subjective HPI/CC On Admission Date Seen by Provider: Jun 02, 2022 Patient is an 86-year-old female with a past medical history of paroxysmal atrial fibrillation, hypertension, GERD who presented to the emergency department due to shoulder pain. When I asked her if she had shoulder pain she said no and that is not why she came to the hospital. She does seem confused. When asked if she had vomited today she said no. When I informed her that she vomited in the emergency department and it was dark black she seems surprised by this. She denies any history of abnormal heart rhythms or atrial fibrillation at first but then states she may have been told this before. Ultimately she is unable to provide me much accurate history and history is obtained from the records. She does endorse history of recurrent vomiting for years. She told the emergency room that this was always bloody emesis and she told me it was phlegm. She was seen in the emergency department yesterday for hematemesis and was diagnosed with a hiatal hernia on CT scan. She was incidentally found to be in atrial fibrillation. Laboratory work-up revealed a normal hemoglobin of 14 but did show an elevated troponin. She was admitted to the ICU for further monitoring. Subjective/Events-last exam Pt reports feeling generally ill but can not explain how. When asked if she is in pain she said no but then later stated "I've never been so sick with pain." She was unable to tell me anywhere she hurt though. Objective Exam Vital Signs Vital Signs Date Time Temp Pulse Resp B/P (MAP) Pulse Ox O2 Delivery O2 Flow Rate FiO2 06/02/22 09:00 65 19 164/93 (116) 95 Nasal Cannula 2.00 06/02/22 07:56 37.2 06/01/22 13:59 21 Capillary Refill : Less Than 3 Seconds General Appearance: No Apparent Distress, Thin Respiratory: Lungs Clear, No Respiratory Distress Cardiovascular: No Murmur, Irregularly Irregular Gastrointestinal: Normal Bowel Sounds, Non Tender, Soft; No Guarding Extremity: Normal Capillary Refill, No Calf Tenderness, No Pedal Edema Neurologic/Psychiatric: Alert, Oriented x3 (no major details) Results/Procedures Lab Laboratory Tests 06/01/22 10:20 06/02/22 04:57 Patient resulted labs reviewed. Imaging: Reviewed Imaging Report Assessment/Plan Assessment and Plan Assess & Plan/Chief Complaint NSTEMI Atrial fibrillation Cardiology consulted, appreciate recs ASA Heparin gtt Trend troponin- essentially stable Telemetry Echo in 2019 showed preserved EF with mod/sever aortic regurg Leukocytosis No evidence of infection May be reactive from vomiting Will get a UA and repeat CXR Hematemesis Hgb 14.2 to 12.3 today Gastric occult negative but coffee ground emesis witnessed by ER MD Trend Surgery consulted, appreciate recs Dementia? Unsure of baseline mentation Speech consult tomorrow for cognitive eval HTN Up slightly Lisinopril added DVT ppx: Heparin gtt Diagnosis/Problems Diagnosis/Problems (1) NSTEMI (non-ST elevated myocardial infarction) Status: Acute (2) Coffee ground emesis Status: Acute (3) Atrial fibrillation Status: Acute Qualifiers: Atrial fibrillation type: unspecified Qualified Codes: I48.91 - Unspecified atrial fibrillation (4) Hiatal hernia Status: Acute CARLA PARTIDA MD Jun 02, 2022 09:47
--- NOTE | 2022-06-02 09:47 | Tele-ICU Progress Note ---
Subjective Date Seen by a Provider: Jun 02, 2022 Subjective/Events-last exam This virtual visit was conducted using real time audio/video. Thank you for asking us to see this patient admitted for afib, UGIB, NSTEMI. Recent events: Recurrent L shoulder pain. PE: VSS. HR 72/min., Afib. O2 sat 98% on 2 LPM NC. HEENT: No obvious masses, adenopathy or JVD. Chest: clear to auscultation. CV: Irreg S1 S2 No murmur or added sounds. Abd: Non-tender. Bowel sounds Y. : Unremarkable. Carter N. PHOTOGRAPHER APPRENTICE LITHOGRAPHIC/psychiatric: Grossly intact. No obvious focal findings. Extremities: No edema. Capillary refill < 3 seconds. Skin: unremarkable. Results: Elevated WCC 21.9, PTT 128, trop 0.056. Decreased K 3.3. CXR: cardiomegaly . Available chart/ vitals / labs / images reviewed. Video assessment done using teleICU camera, rest of exam as per RN. A/P: Critical Care: critically ill patient. Cont. PRN Duonebs, O2, hep., ASA, PPI. Replace K. To go to clinical laboratory aide this AM. Discussed with RN Sofya. Asked RN to reach out to eICU if any questions or c oncerns later. Time spent with patient/coordination of care with other health professionals (mins): 25 Sepsis Event Evaluation Height, Weight, BMI Height: 5'5.00" Weight: 192lbs. 0.0oz. [id number]; 25.57 BMI Method:Stated Exam Exam Patient acknowledged, consented, and participated in this virtual visit which was conducted using real time audio/video Vital Signs Date Time Temp Pulse Resp B/P (MAP) Pulse Ox O2 Delivery O2 Flow Rate FiO2 06/02/22 09:00 65 19 164/93 (116) 95 Nasal Cannula 2.00 06/02/22 08:00 81 23 97 Nasal Cannula 2.00 06/02/22 07:56 37.2 06/02/22 07:00 66 06/02/22 07:00 81 23 148/89 (108) 96 Nasal Cannula 2.00 06/02/22 06:00 73 18 160/90 (113) 97 Nasal Cannula 2.00 06/02/22 05:00 75 27 161/95 (117) 97 Nasal Cannula 2.00 06/02/22 04:00 97 Nasal Cannula 2.00 06/02/22 04:00 36.7 63 19 127/80 (96) 97 Nasal Cannula 2.00 06/02/22 03:00 57 12 135/68 (90) 97 Nasal Cannula 2.00 06/02/22 02:56 98 Nasal Cannula 2.00 06/02/22 02:00 53 18 138/66 (90) 98 Nasal Cannula 2.00 06/02/22 01:00 59 15 126/58 (80) 97 Nasal Cannula 2.00 06/02/22 01:00 78 06/02/22 00:00 56 19 112/63 (79) 97 Nasal Cannula 2.00 06/01/22 23:20 36.9 62 20 122/75 (91) 96 Nasal Cannula 2.00 06/01/22 23:20 96 Nasal Cannula 2.00 06/01/22 22:26 Nasal Cannula 2.00 06/01/22 22:00 62 20 154/80 (104) 99 Nasal Cannula 2.00 06/01/22 21:44 Nasal Cannula 2.00 06/01/22 21:00 70 13 139/75 (96) 92 Room Air 06/01/22 20:00 68 22 150/79 (102) 91 Room Air 06/01/22 19:49 37.3 06/01/22 19:25 91 Room Air 06/01/22 19:00 37.3 60 20 167/85 (112) 91 Room Air 06/01/22 19:00 67 06/01/22 18:00 70 25 163/87 (112) 92 Room Air 06/01/22 17:00 97 20 152/89 (110) 90 Room Air 06/01/22 16:00 79 145/79 (101) 93 Room Air 06/01/22 16:00 93 Room Air 06/01/22 15:30 54 06/01/22 15:05 36.7 06/01/22 15:00 59 93 Room Air 06/01/22 14:00 81 26 90 Room Air 06/01/22 13:59 35.8 58 96 21 06/01/22 13:30 53 22 172/95 (120) 93 Room Air 06/01/22 13:20 103 155/76 06/01/22 13:00 96 Room Air I & O 06/02/22 07:00 Intake Total 1950 ml Output Total 625 ml Balance 1325 ml Height & Weight Height: 5'5.00" Weight: 192lbs. 0.0oz. 87.737001ee; 25.57 BMI Method:Stated General Appearance: No Apparent Distress, WD/WN HEENT: PERRL/EOMI, Normal ENT Inspection Neck: Normal Inspection; No JVD Respiratory: Lungs Clear, Normal Breath Sounds, No Accessory Muscle Use, No Respiratory Distress Cardiovascular: Regular Rate, Rhythm, No Edema, No Murmur Capillary Refill: Less Than 3 Seconds Extremity: Normal Inspection, No Pedal Edema Neurologic/Psychiatric: Alert, Oriented x3, No Motor/Sensory Deficits, Normal Mood/Affect, Other (Poor historian) Skin: Normal Color, Warm/Dry Lymphatic: No Adenopathy Results Lab Laboratory Tests 06/01/22 10:20 06/02/22 04:57 Assessment/Plan Assessment/Plan See free text. Critical Care: Critically Ill Patient NOEMI COLLADO MD Jun 02, 2022 09:47
[2022-06-02] MEDS ORDERED: lisINopril 10 MG (PRINIVIL) TABLET PO NR (10:00)
[2022-06-02] MEDS ORDERED: fentaNYL INJ 100 MCG/2 ML AMP ONE (10:14)
[2022-06-02] MEDS ORDERED: MIDAZOLAM 2 MG/2 ML (VERSED) VIAL ONE (10:14)
[2022-06-02] MEDS ORDERED: LIDOCAINE 1% INJ 20 ML VIAL ONE (10:14)
[2022-06-02] MEDS ORDERED: NS IV 1000 ML 0 ML ONE (10:15)
[2022-06-02] MEDS ORDERED: HEParin (CATH LAB) 1,000 ML IV ONE (10:15)
--- NOTE | 2022-06-02 11:08 | Cardiac Cath Report ---
Cardiac Cath Report Physician (s)/Master Lay Out Specialist (s) Physician KAROLINE RAMIREZ MD Pre-Procedure Diagnosis Pre-Procedure Diagnosis: Non-ST elevation myocardial infarction Post-Procedure Note Procedure Start Date: Jun 02, 2022 Name of Procedure: Left heart catheterization Findings/Procedure Note PROCEDURE NOTE: 86-year-old lady admitted with atypical chest pain, back pain, had elevation in troponin and abnormal EKG. Cardiac catheterization was advised. After explaining the procedure to the patient, all pros and cons were explained, all questions were answered. The patient signed the consent and then she was placed on the cardiac catheterization laboratory. Groin was prepped SL fashion local anesthesia was used. Sheath placed in the right femoral artery. Nichol right and left catheter were used to access the coronary system. Using [employer] wire and Nichol right I was able to cross the aortic valve, pressure was measured, pullback LV to aorta was done. Left ventriculogram was not done Aortic arch angiogram was not done At the end of the procedure the sheath was removed. Closure device FINDINGS: Hemodynamics LV 113/10, end-diastolic pressure of 10 Aorta 94/43 mean of 65 Peak to peak gradient 20 mmHg ANATOMY: Left Main has mild stenosis nonobstructive disease Left Anterior Descending has severe stenosis at the midportion long segment with 70% stenosis involving the ostium of the diagonal artery that has 95% stenosis and there is an aneurysmal area in the middle of the stenotic lesion. Distally there is a 60% stenosis Left Circumflex has 95% stenosis at the ostium of the proper circumflex artery and 90% lesion involving the obtuse marginal branch, that lesion is a trifurcating area Right Coronary Artery is a large dominant artery giving collaterals to the LAD, 70% stenosis proximally LV Gram was not done, pressure was measured CONCLUSION: 1. 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 2. Aortic valve stenosis with peak to peak gradient 20 mmHg 3. Normal left ventricular end-diastolic pressure DISCUSSION AND RECOMMENDATION: Maximize medical therapy, we will evaluate 2D echo and discussed the possibility of CABG versus high risk intervention versus conservative management Anesthesia Type: Conscious Sedation Estimated blood loss (mL): 15 ml Contrast Amount: 50 ml Total Radiation Dose: 710 mGy Post-Procedure Diagnosis Post-operative diagnosis: Non-ST elevation myocardial infarction Atrial fibrillation Nausea and vomiting Hiatal hernia Aortic valve stenosis KAROLINE RAMIREZ MD Jun 02, 2022 11:08
[2022-06-02] MEDS ORDERED: PATIENT MAY USE OWN MEDS, ALL PO SCH (11:15)
[2022-06-02] MEDS ORDERED: HEParin DRIP 25000 UNIT/500ML 500 ML IV SCH (15:30)
[2022-06-02] MEDS ORDERED: HEParin 1000 UNIT/ML (10ML VIAL) FOR BOLUS IV PRN (15:30)
--- NOTE | 2022-06-02 17:00 | CONSULTATION REPORT ---
DATE OF SERVICE: 06/02/2022 ADMITTING PHYSICIAN: Dr. Bell. HISTORY OF PRESENT ILLNESS: The patient is an 86-year-old female who presented to the Emergency Department with left sided shoulder pain. She had also reported that she has had some chest pain as well as substernal pain on an intermittent basis for years; however, this has worsened in the past few months. She also did have an episode of coffee-ground emesis. However, she was gastroccult negative.Her hemoglobin is stable. Upon further questioning, she reports that she has had some issues with regurgitation, especially with some types of foods and difficulty swallowing. The patient also does have a history of atrial fibrillation. She is scheduled for a cardiac catheterization today. She reports that she has never had an upper endoscopy before however, has had colonoscopy, but cannot remember when this was. PAST MEDICAL HISTORY: Atrial fibrillation, hypertension, asthma, history of right breast cancer, gastroesophageal reflux disease, COPD, asthma. PAST SURGICAL HISTORY: Right mastectomy. ALLERGIES: CODEINE, IBUPROFEN. MEDICATIONS: Albuterol 17 grams two sprays p.r.n., benazepril 10 mg daily, fluticasone/salmeterol 2 puffs b.i.d., montelukast 10 mg daily, Protonix 40 mg daily. SOCIAL HISTORY: Negative smoke, negative alcohol. FAMILY HISTORY: Noncontributory. VITAL SIGNS: Temperature 37.2, blood pressure 116/85, pulse 62, respirations 12, pulse ox 97% on 2 liters nasal cannula. REVIEW OF SYSTEMS: Well-nourished female currently in no acute distress. She is not experiencing any shortness of breath or difficulty in breathing. She does report some intermittent pain in the left shoulder as well as the left chest and substernal region. She also does report regurgitation and dysphagia. No hematemesis, no coffee ground emesis. No red blood per rectum, no dark tarry stools. No fever, chills, no recent inadvertent weight loss. All other review of systems negative. PHYSICAL EXAMINATION: CHEST: Few scattered wheezes bilaterally. HEART: Regular, no murmurs. EXTREMITIES: No lower extremity edema, negative Homans sign. HEENT: No scleral icterus. NECK: No cervical lymphadenopathy. ABDOMEN: Soft, nondistended. There is mild discomfort in the epigastric region upon deep palpation. No peritoneal signs. SKIN: Warm, dry. ASSESSMENT AND PLAN: An 86-year-old female with epigastric left chest as well as left back pain. She also does have a history of atrial fibrillation and is scheduled to proceed with cardiac catheterization to rule out coronary artery disease. The patient also appears to have had an atypical form of gastroesophageal reflux disease, which has progressed to dysphagia, which may indicate hiatal hernia; however, the possibility of an esophageal stricture or both. On this admission, we will also proceed with an EGD as well as biopsies as appropriate as well as a balloon dilatation. Job ID: [id number] DocumentID: [id number] Dictated Date: 06/02/2022 11:37:35 Glass Sander Belt Date: 06/02/2022 16:59:43 Dictated By: LATASHA MEZA MD MTDD
[2022-06-02] MEDS ORDERED: HEParin 1000 UNIT/ML (10ML VIAL) FOR BOLUS IV ONE (17:15)
[2022-06-02] MEDS ORDERED: ATROPINE INJECTION 1 MG/10 ML SYR (ABBOTT) IV ONE (18:45)
[2022-06-02] MEDS ORDERED: ATROPINE INJECTION 1 MG/10 ML SYR (ABBOTT) ONE (19:25)
[2022-06-02] MEDS ORDERED: MONTELUKAST 10 MG (SINGULAIR) TAB PO SCH (21:00)
--- NOTE | 2022-06-02 21:27 | Tele-ICU Progress Note ---
Subjective Date Seen by a Provider: Jun 02, 2022 Time Seen by a Provider: 21:21 Subjective/Events-last exam Had cardiac cath today, has multi vessel disease, 07/01 pain c/o left shoulder pain which appears chronic, allergic to codeine, ibuprofen, will give IV morphine 2 mg IVP-pt does not know if she every had morphine. trop went up from 0.045 to 0.056, EKG did not change Sepsis Event Evaluation Height, Weight, BMI Height: 5'5.00" Weight: 192lbs. 0.0oz. 87.767934dn; 25.57 BMI Method:Stated Exam Exam Patient acknowledged, consented, and participated in this virtual visit which was conducted using real time audio/video Vital Signs Date Time Temp Pulse Resp B/P (MAP) Pulse Ox O2 Delivery O2 Flow Rate FiO2 06/02/22 20:00 100 Nasal Cannula 2.00 06/02/22 19:36 36.9 83 16 131/70 (90) 96 Nasal Cannula 2.00 06/02/22 18:00 83 16 131/70 (90) 96 Nasal Cannula 2.00 06/02/22 17:00 56 24 142/77 (98) 98 Nasal Cannula 2.00 06/02/22 16:00 53 21 132/68 (89) 97 Nasal Cannula 2.00 06/02/22 16:00 97 Nasal Cannula 2.00 06/02/22 15:38 36.5 06/02/22 15:00 52 14 118/73 (88) 97 Nasal Cannula 2.00 06/02/22 14:30 97 Nasal Cannula 1.00 06/02/22 14:00 53 32 106/68 (81) 98 Nasal Cannula 2.00 06/02/22 13:00 63 06/02/22 13:00 60 21 118/58 (78) 98 Nasal Cannula 2.00 06/02/22 12:00 94 Nasal Cannula 2.00 06/02/22 12:00 66 16 99/57 (71) 92 Nasal Cannula 2.00 06/02/22 11:57 36.5 06/02/22 11:45 57 17 100/60 (73) 94 Nasal Cannula 2.00 06/02/22 11:30 59 15 114/61 (78) 94 Nasal Cannula 2.00 06/02/22 11:15 62 23 102/58 (73) 97 Nasal Cannula 2.00 06/02/22 10:00 62 12 116/85 (95) 97 Nasal Cannula 2.00 06/02/22 09:00 65 19 164/93 (116) 95 Nasal Cannula 2.00 06/02/22 08:00 81 23 97 Nasal Cannula 2.00 06/02/22 08:00 96 Nasal Cannula 2.00 06/02/22 07:56 37.2 06/02/22 07:00 66 06/02/22 07:00 81 23 148/89 (108) 96 Nasal Cannula 2.00 06/02/22 06:00 73 18 160/90 (113) 97 Nasal Cannula 2.00 06/02/22 05:00 75 27 161/95 (117) 97 Nasal Cannula 2.00 06/02/22 04:00 97 Nasal Cannula 2.00 06/02/22 04:00 36.7 63 19 127/80 (96) 97 Nasal Cannula 2.00 06/02/22 03:00 57 12 135/68 (90) 97 Nasal Cannula 2.00 06/02/22 02:56 98 Nasal Cannula 2.00 06/02/22 02:00 53 18 138/66 (90) 98 Nasal Cannula 2.00 06/02/22 01:00 59 15 126/58 (80) 97 Nasal Cannula 2.00 06/02/22 01:00 78 06/02/22 00:00 56 19 112/63 (79) 97 Nasal Cannula 2.00 06/01/22 23:20 36.9 62 20 122/75 (91) 96 Nasal Cannula 2.00 06/01/22 23:20 96 Nasal Cannula 2.00 06/01/22 22:26 Nasal Cannula 2.00 06/01/22 22:00 62 20 154/80 (104) 99 Nasal Cannula 2.00 06/01/22 21:44 Nasal Cannula 2.00 I & O 06/02/22 06:59 Intake Total 1950 ml Output Total 625 ml Balance 1325 ml Height & Weight Height: 5'5.00" Weight: 192lbs. 0.0oz. 87.363261xh; 25.57 BMI Method:Stated General Appearance: No Apparent Distress, WD/WN HEENT: PERRL/EOMI, Normal ENT Inspection Neck: Normal Inspection; No JVD Respiratory: Lungs Clear, Normal Breath Sounds, No Accessory Muscle Use, No Respiratory Distress Cardiovascular: Regular Rate, Rhythm, No Edema, No Murmur Capillary Refill: Less Than 3 Seconds Extremity: Normal Inspection, No Pedal Edema Neurologic/Psychiatric: Alert, Oriented x3, No Motor/Sensory Deficits, Normal Mood/Affect, Other (Poor historian) Skin: Normal Color, Warm/Dry Lymphatic: No Adenopathy Results Lab Laboratory Tests 06/01/22 10:20 06/02/22 04:57 Assessment/Plan Assessment/Plan left shoulder pain, DJD, will give IVP morphine 2 mg DOMONIQUE BASURTO MD Jun 02, 2022 21:27
[2022-06-02] MEDS ORDERED: morphine INJ 10 MG/ML 1ML (SYR OR VIAL) IVP STA (21:29)
[2022-06-03] MEDS: MELATONIN 3 MG TABLET PO PRN (00:19)
[2022-06-03] MEDS: RT-ALBUTEROL/IPRATROPIUM 3 ML (DUONEB) VIAL INH SCH ×2 (02:35→06:53)
[2022-06-03 04:00] LABS: HEMATOCRIT 31 % (35-52); HEMOGLOBIN 10.2 g/dL (11.5-16.0); MEAN CORPUSCULAR HEMOGLOBIN 30 pg (25-34); MEAN CORPUSCULAR HGB CONC 33 g/dL (32-36); MEAN CORPUSCULAR VOLUME 91 fL (80-99); MEAN PLATELET VOLUME 11.4 fL (9.0-12.2); PLATELET COUNT 180 10^3/uL (130-400); WHITE BLOOD COUNT 13.6 10^3/uL (4.3-11.0)
[2022-06-03 04:10] LABS: ALBUMIN 3.2 GM/DL (3.2-4.5); POTASSIUM 3.2 MMOL/L (3.6-5.0)
[2022-06-03 04:13] LABS: TOTAL PROTEIN 5.1 GM/DL (6.4-8.2)
[2022-06-03 04:15] LABS: BILIRUBIN,TOTAL 0.6 MG/DL (0.1-1.0)
[2022-06-03 04:16] LABS: CREATININE SERUM 0.84 MG/DL (0.60-1.30)
[2022-06-03] MEDS: POTASSIUM CL 10MEQ/50ML IVPB 50 ML IV SCH (05:45)
[2022-06-03] MEDS: KCL 20 MEQ TAB (K-DUR) PO SCH (05:45)
[2022-06-03] MEDS: MAGNESIUM 1 GM/100 ML IVPB 100 ML IV SCH (05:45)
[2022-06-03] MEDS ORDERED: KCL 20 MEQ TAB (K-DUR) PO ONE ×2 (06:00→08:00)
[2022-06-03] MEDS: NS IV 1000 ML 1,000 ML IV SCH ×2 (06:04→09:14)
[2022-06-03] MEDS ORDERED: lisINopril 10 MG (PRINIVIL) TABLET PO SCH (09:00)
--- NOTE | 2022-06-03 09:23 | Cardiology Progress Note ---
Subjective Date Seen by Provider: Jun 03, 2022 Time Seen by Provider: 09:20 Subjective/Events-last exam Patient was seen at bedside, laying down comfortably, still having shoulder pain Started to have episodes of bradycardia Review of Systems General: No Chills, No Night Sweats, No Fatigue, No Malaise, No Appetite, No Other HEENT: No Head Aches, No Visual Changes, No Eye Pain, No Ear Pain, No Dysphasia, No Sinus Congestion, No Post Nasal Drip, No Sore Throat, No Other Pulmonary: No Dyspnea, No Cough, No Pleuritic Chest Pain, No Other Cardiovascular: No: Chest Pain, Palpitations, Orthopnea, Paroxysmal Noc. Dyspnea, Edema, Lt Headedness, Other Objective-Cardiology Exam Last Set of Vital Signs Vital Signs 06/01/22 06/03/22 06/03/22 06/03/22 06/03/22 06/03/22 13:59 03:54 04:00 06:00 06:53 07:00 Temp 36.5 Pulse 54 Resp 32 B/P (MAP) 145/76 (99) Pulse Ox 96 O2 Delivery Nasal Cannula O2 Flow Rate 2.00 FiO2 21 I&O Intake and Output 06/03/22 00:00 Intake Total 2200 ml Output Total 950 ml Balance 1250 ml Intake Oral 800 ml IV Total 1400 ml Output Urine Total 950 ml # Voids 2 General: Alert, Oriented X3, Cooperative HEENT: Atraumatic, PERRLA Neck: Supple, No JVD, No Thyromegaly Lungs: Clear to Auscultation, Normal Air Movement Heart: Normal S1, Normal S2, Other (Atrial fibrillation, bradycardia, systolic murmur) Abdomen: Normal Bowel Sounds, Soft, No Tenderness, No Hepatosplenomegaly, No Masses Extremities: No Clubbing, No Cyanosis, No Edema, Normal Pulses, No Tenderness/Swelling Skin: No Rashes, No Breakdown, No Significant Lesion Neuro: Normal Gait, Normal Speech, Strength at 5/5 X4 Ext, Normal Tone, Sensation Intact Psych/Mental Status: Mental Status NL, Mood NL Results Lab Laboratory Tests 06/03/22 03:34 A/P-Cardiology Admission Diagnosis Non-ST elevation myocardial infarction Permanent atrial fibrillation Aortic valve stenosis Nausea and vomiting Assessment/Plan Non-ST elevation myocardial infarction, mildly elevated troponin level, EKG showing ST depression in V2. Nonspecific findings Cardiac catheterization carried out on June 02, 2022 showing severe multivessel coronary artery disease Initially discussed conservative management, I forwarded copy of the cath to [place] with Dr. Neves and patient will be transferred for possible high risk intervention Bradycardia, having multiple episodes of bradycardia, not receiving any beta- blockers or calcium channel blockers She could benefit from leadless pacemaker implant Chronic permanent atrial fibrillation, rate controlled. Patient has been refusing anticoagulation she was offered ablation in the past and she has refused it. Conservative management at this point 2D echo was done on June 03, 2022 showing normal LV size with ejection fraction 50 to 55%, moderate aortic stenosis, moderate to severe mitral regurgitation, moderate tricuspid regurgitation, pulmonary hypertension with PA pressure 50 mmHg Severely dilated left atrium Nausea and vomiting. Reporting coffee-ground emesis H&H has been stable Tolerating heparin drip, managed by primary care physician Leukocytosis, better today, continue to monitor, managed by primary care physician Left shoulder pain, having significant discomfort below her left scapula, the actual shoulder does not cause any significant pain with movement. Has been having neck pain. Consider evaluating MRI of the shoulder Hypertension, monitor blood pressure KAROLINE RAMIREZ MD Jun 03, 2022 09:23
[2022-06-03 10:36] VITALS: BP 129/65
[2022-06-03] MEDS ORDERED: DIGO250T3 PO (10:51)
[2022-06-03] MEDS ORDERED: CALC-857 PO (10:51)
[2022-06-03] MEDS ORDERED: MULT-1136 PO (10:51)
[2022-06-03] MEDS ORDERED: MONT-40 PO (10:51)
[2022-06-03] MEDS ORDERED: FLUT12AE4 INH (10:51)
[2022-06-03] MEDS ORDERED: ASPI-1238 PO (10:51)
[2022-06-03] MEDS ORDERED: HYDR12.56 PO (10:51)
[2022-06-03] MEDS ORDERED: ASPI81TA64 PO (10:52)
[2022-06-03] MEDS ORDERED: ASPI-999 PO (10:52)
--- NOTE | 2022-06-03 13:03 | Speech Therapy Progress Note ---
Therapy Progress Note Speech pathology received the consultation for a cognitive evaluation and completed a thorough chart review. ST attempted the evaluation at 1230, however, (per chart review) the patient was transferred facilities. ST to sign off at this time. PUSHPA GAMING Jun 03, 2022 13:03
--- NOTE | 2022-06-03 20:38 | Discharge Summary ---
Discharge Summary Hospital Course Was the Problem List Reviewed?: Yes Problems/Dx: (1) Multiple vessel coronary artery disease Status: Acute (2) NSTEMI (non-ST elevated myocardial infarction) Status: Acute (3) Coffee ground emesis Status: Acute (4) Atrial fibrillation Status: Acute Qualifiers: Qualified Codes: I48.91 - Unspecified atrial fibrillation (5) Hiatal hernia Status: Acute Hospital Course Date of Admission: Jun 01, 2022 at 13:05 Admission Diagnosis : NSTEMI Family Physician/Provider: No,Local Physician Date of Discharge: 06/03/22 Discharge Diagnosis: NSTEMI, multi-vessel CAD Hospital Course: Valencia Benavides is an 86 year old female who presented with shoulder pain and was admitted with NSTEMI. Cardiology was consulted and assisted with her care. She underwent a left heart catheterization and was found to have multiple vessel coronary artery disease. She was transferred to [facility] for CABG evaluation. Labs and Pending Lab Test: Laboratory Tests 06/03/22 03:34: White Blood Count 13.6H, Red Blood Count 3.46L, Hemoglobin 10.2L, Hematocrit 31L , Mean Corpuscular Volume 91, Mean Corpuscular Hemoglobin 30, Mean Corpuscular Hemoglobin Concent 33, Red Cell Distribution Width 13.5, Platelet Count 180, Mean Platelet Volume 11.4, Activated Partial Thromboplast Time 60H, Sodium Level 135, Potassium Level 3.2L, Chloride Level 99, Carbon Dioxide Level 26, Anion Gap 10, Blood Urea Nitrogen 21H, Creatinine 0.84, Estimat Glomerular Filtration Rate 68, BUN/Creatinine Ratio 25, Glucose Level 97, Calcium Level 9.0, Corrected Calcium 9.6, Magnesium Level 2.1, Total Bilirubin 0.6, Aspartate Amino Transf (AST/SGOT) 14, Alanine Aminotransferase (ALT/SGPT) 12, Alkaline Phosphatase 44, Total Protein 5.1L, Albumin 3.2 06/03/22 09:38: Activated Partial Thromboplast Time 134*H Home Meds Active Reported Aspirin 81 Mg Tab.chew 81 Mg PO HS Multivitamin 1 Each Tablet 1 Each PO HS Caltrate 600 + D Soft Chew Tab (Calcium Carbonate/Vitamin D3) 600 Mg Calcium-20 Mcg (800 Unit) Tab.chew 1 Ea PO HS Advair Hfa 115-21 Mcg Inhaler (Fluticasone/Salmeterol) 115 Mcg-21 Mcg/Actuation Hfa.aer.ad 2 Puff INH HS Montelukast Sodium 10 Mg Tablet 10 Mg PO HS Hydrochlorothiazide 12.5 Mg Tablet 12.5 Mg PO HS Digoxin 250 Mcg (0.25 Mg) Tablet 250 Mcg PO HS Assessment/Pt Instructions Transferred to [facility] Consultations Cardiology Discharge Physical Examination Vital Signs Vital Signs Date Time Temp Pulse Resp B/P (MAP) Pulse Ox O2 Delivery O2 Flow Rate FiO2 06/03/22 10:36 36.5 68 21 129/65 94 Nasal Cannula 06/03/22 10:00 2.00 06/01/22 13:59 21 Allergies: Coded Allergies: codeine (Verified Allergy, Mild, 11/29/05) ibuprofen (Unverified Adverse Reaction, Unknown, 03/03/19) Discharge Summary Date of Admission Jun 01, 2022 at 13:05 Date of Discharge Jun 03, 2022 at 10:36 Discharge Date: Jun 03, 2022 Discharge Time: 10:36 Admission Diagnosis NSTEMI Consults/Procedures Consulations Cardiology Procedures Left heart cath Discharge Diagnosis (1) Multiple vessel coronary artery disease Status: Acute (2) NSTEMI (non-ST elevated myocardial infarction) Status: Acute (3) Coffee ground emesis Status: Acute (4) Atrial fibrillation Status: Acute Qualifiers: Qualified Codes: I48.91 - Unspecified atrial fibrillation (5) Hiatal hernia Status: Acute TRACE RICHARDSON MD Jun 03, 2022 20:37
== END 2022-06-03 10:36 | disposition short-term general hospital (02) | DRG 281 ==
LOC: EDUNIT# 08:24 → ER 08:28 → ICU 13:05
PROVIDERS: ADMIT Family Medicine; ATTEND Internal Medicine
PROC: 4A023N7 Measurement of Cardiac Sampling and Pressure, Left Heart, Percutaneous Approach (ICD-10-PCS; principal; 2022-06-01)
PROC: B2111ZZ Fluoroscopy of Multiple Coronary Arteries using Low Osmolar Contrast (ICD-10-PCS; 2022-06-01)
DX: I21.4 Non-ST elevation (NSTEMI) myocardial infarction (principal); K92.0 Hematemesis; I48.21 Permanent atrial fibrillation; I10 Essential (primary) hypertension; K21.9 Gastro-esophageal reflux disease without esophagitis; J44.9 Chronic obstructive pulmonary disease, unspecified; K44.9 Diaphragmatic hernia without obstruction or gangrene; I48.0 Paroxysmal atrial fibrillation; Z85.3 Personal history of malignant neoplasm of breast; Z90.11 Acquired absence of right breast and nipple; Z87.891 Personal history of nicotine dependence; F03.90 Unspecified dementia, unspecified severity, without behavioral disturbance, psychotic disturbance, mood disturbance, and anxiety; D72.829 Elevated white blood cell count, unspecified; M19.90 Unspecified osteoarthritis, unspecified site; I25.10 Atherosclerotic heart disease of native coronary artery without angina pectoris; I35.0 Nonrheumatic aortic (valve) stenosis; M25.512 Pain in left shoulder
CPT/HCPCS: 36415; 71045; 80053; 80061; 80162; 82271; 83735; 83874; 84484; 85007; 85027; 85610; 85730; 86141; 93005; 93041; 93306; 93458; 94640; 94664

== ENCOUNTER 2022-08-04 16:03 | Emergency (ER) | payer MEDICARE, BC, OTHER ==
[~2022-08-04] VITALS: Ht 165 cm; Wt 58.0 kg
[~2022-08-04 16:03] MED LIST changes: +ASPI-1238 PO; +ASPI-999 PO; +ASPI81TA64 PO; +CALC-857 PO; +DIGO250T3 PO; +FLUT12AE4 INH; +HYDR12.56 PO; +MONT-40 PO; +MULT-1136 PO
[2022-08-04 16:05] VITALS: BP 146/71
--- NOTE | 2022-08-04 16:15 | ED EENT ---
History of Present Illness General Chief Complaint: Nasal Problems Stated Complaint: NOSE BLEED Nursing Triage Note: PT WITH SON STATES NOSE BLEED THAT STARTED THIS A.M. DENIES ANY TRAUMA Source: patient Exam Limitations: no limitations History of Present Illness Date Seen by Provider: Aug 04, 2022 Time Seen by Provider: 16:00 Initial Comments 86-year-old female presents emergency department today for nosebleed. Symptoms started this morning and have been persistent. She is on Eliquis and Plavix. No dizziness lightheadedness or chest pain. No shortness of breath. No trauma. Allergies and Home Medications Allergies Coded Allergies: No Known Drug Allergies (Unverified , 08/04/22) Patient Home Medication List Home Medication List Reviewed: Yes Apixaban (Eliquis) 5 Mg Tablet, 5 MG PO BID, (Reported) Entered as Reported by: WYATT IYER on 08/04/221618 Last Action: New Order Atorvastatin Calcium (Atorvastatin Calcium) 40 Mg Tablet, 40 MG PO DAILY, (Reported) Entered as Reported by: WYATT IYER on 08/04/221618 Last Action: New Order Clopidogrel Bisulfate (Clopidogrel) 75 Mg Tablet, 75 MG PO DAILY, (Reported) Entered as Reported by: WYATT IYER on 08/04/221618 Last Action: New Order Fluticasone/Salmeterol (Advair Hfa 115-21 Mcg Inhaler) 115 Mcg-21 Mcg/Actuation Hfa.aer.ad, 2 PUFF INH HS, (Reported) Entered as Reported by: ESHA CHOUDHARY on 06/03/22 105 Last Action: Last Taken Edited Montelukast Sodium (Montelukast Sodium) 10 Mg Tablet, 10 MG PO HS, (Reported) Entered as Reported by: ESHA CHOUDHARY on 06/03/221050 Last Action: Last Taken Edited Multivitamin (Multivitamin) 1 Each Tablet, 1 EACH PO HS, (Reported) Entered as Reported by: ESHA CHOUDHARY on 06/03/22 105 Discontinued Medications Aspirin (Aspirin) 81 Mg Tab.chew, 81 MG PO HS, (Reported) Discontinued Reason: Provider Ok'd Entered as Reported by: ESHA CHOUDHARY on 06/03/22 105 Last Action: Discontinued Calcium Carbonate/Vitamin D3 (Caltrate 600 + D Soft Chew Tab) 600 Mg Calcium-20 Mcg (800 Unit) Tab.chew, 1 EA PO HS, (Reported) Discontinued Reason: New Order Entered as Reported by: ESHA CHOUDHARY on 06/03/221050 Last Action: Discontinued Digoxin (Digoxin) 250 Mcg (0.25 Mg) Tablet, 250 MCG PO HS, (Reported) Discontinued Reason: Provider Ok'd Entered as Reported by: ESHA CHOUDHARY on 06/03/221050 Last Action: Discontinued Hydrochlorothiazide (Hydrochlorothiazide) 12.5 Mg Tablet, 12.5 MG PO HS, (Report ed) Discontinued Reason: Provider Ok'd Entered as Reported by: ESHA CHOUDHARY on 06/03/221050 Last Action: Discontinued Review of Systems Review of Systems Constitutional: no symptoms reported Eyes: No Symptoms Reported Ears: No Symptoms Reported Nose: epistaxis Mouth: no symptoms reported Throat: no symptoms reported Respiratory: no symptoms reported Cardiovascular: no symptoms reported Gastrointestinal: no symptoms reported Musculoskeletal: no symptoms reported Skin: no symptoms reported Neurological: No Symptoms Reported Hematologic/Lymphatic: No Symptoms Reported Immunological/Allergic: no symptoms reported Past Jpcnvvk-Lpsyhj-Chkewj Hx Patient Social History Tobacco Use?: No Use of E-Cig and/or Vaping dev: No Substance use?: No Alcohol Use?: No Immunizations Up To Date First/Initial COVID19 Vaccinat: NA Second COVID19 Vaccination Sathish: NA Third COVID19 Vaccination Date: NA Past Medical History Surgery/Hospitalization HX: RIGHT MASTECTOMY, HTN, GERD, ESOPHAGEAL STRICTURE, COPD, ASTHMA Surgeries: Yes Breast Respiratory: Yes Asthma Cardiac: Yes Atrial Fibrillation, Hypertension Neurological: No Genitourinary: No Gastrointestinal: Yes (History esophageal strictures) Gastroesophageal Reflux, Hiatal Hernia Musculoskeletal: No Endocrine: No Cancer: Yes Breast Did You Recieve Any Treatments: Yes What Type of Treatment Did You: Surgical Intervention Integumentary: No Family Medical History Reviewed Nursing Family Hx No Pertinent Family Hx Physical Exam Vital Signs Vital Signs - First Documented 08/04/22 16:05 Temp 37.1 Pulse 93 Resp 20 B/P (MAP) 146/71 (96) O2 Delivery Room Air Height, Weight, BMI Height: 5'5.00" Weight: 192lbs. 0.0oz. 87.250226um; 21.00 BMI Method:Stated General Appearance: WD/WN, no apparent distress Eyes: bilateral eye normal inspection, bilateral eye PERRL, bilateral eye EOMI Ears: bilateral ear auricle normal, bilateral ear canal normal, bilateral ear TM normal Nose: normal inspection, other (NG tube in the left nare.) Neck: non-tender, full range of motion, supple, normal inspection Cardiovascular: regular rate, rhythm, no edema, no gallop, no JVD, no murmur Respiratory: chest non-tender, lungs clear, normal breath sounds, no respiratory distress, no accessory muscle use Gastrointestinal: normal bowel sounds, non tender, soft, no organomegaly Neurologic/Psychiatric: alert, normal mood/affect, oriented x 3 Skin: normal color, warm/dry Progress/Results/Core Measures Results/Orders My Orders Medications Given in ED Vital Signs/I&O Blood Pressure Mean: 96 Departure Communication (Admissions) Bleeding initially controlled with Afrin and a nasal clamp. Once removed she remained hemostatic for about 20 minutes and then started spontaneously bleeding once again. I used silver nitrate to cauterize the area in question, applied more Afrin and reapplied the clamp. After about 45 minutes of observation the patient had no recurrence of her bleeding. She stable for discharge home at this time. She was provided nasal clamp and Afrin to take home. She is given i nstructions to use Afrin and apply the clamp for about 30 to 45 minutes if she has recurrence of bleeding. If this does not quell her bleeding then she will need to return to the emergency department. She states understanding. She is discharged in stable condition Impression Primary Impression: Epistaxis Disposition: 01 HOME, SELF-CARE Condition: Stable Departure-Patient Inst. Referrals: ROBB FRIED MD (PCP/Family) Primary Care Physician Add. Discharge Instructions: Should your nosebleed recur, please take 2 sprays of Afrin in each nostril and place the clamp. Keep this in place for 30 to 45 minutes. If this does not improve your bleeding please return to the emergency department. Stop your Eliquis for the next 2 days. Do not blow your nose. All discharge instructions reviewed with patient and/or family. Voiced understanding. FRANKIE LOPEZ DO Aug 04, 2022 16:15
[2022-08-04] MEDS ORDERED: APIX5TAB PO (16:19)
[2022-08-04] MEDS ORDERED: CLOP75TA28 PO (16:19)
[2022-08-04] MEDS ORDERED: OXYMETAZOLINE (AFRIN) 0.05% NA 30 ML BTL ONE (16:19)
[2022-08-04] MEDS ORDERED: ATOR40TA70 PO (16:19)
[2022-08-04] MEDS ORDERED: SILVER NITRATE APPLICATOR 1 PKT TP ONE (17:00)
[2022-08-04] MEDS ORDERED: OXYMETAZOLINE (AFRIN) 0.05% NA 30 ML BTL SCH (21:00)
== END 2022-08-04 17:49 | disposition home or self-care (01) ==
LOC: EDUNIT# 16:03 → ER 16:05
DX: R04.0 Epistaxis (principal)
CPT/HCPCS: 99282

== ENCOUNTER 2022-09-20 10:02 | Emergency (ER) | payer MEDICARE, BC, OTHER ==
[~2022-09-20] VITALS: Ht 165 cm; Wt 58.0 kg
[~2022-09-20 10:02] MED LIST changes: +APIX5TAB PO; +ATOR40TA70 PO; +CLOP75TA28 PO
[2022-09-20] MEDS ORDERED: NS IV 500 ML 500 ML IV ONE (11:15)
[2022-09-20 11:22] LABS: BASOPHILS # (AUTO) 0.1 10^3/uL (0.0-0.1); BASOPHILS % (AUTO) 1 % (0-10); EOSINOPHILS # (AUTO) 0.3 10^3/uL (0.0-0.3); EOSINOPHILS % (AUTO) 3 % (0-10); HEMATOCRIT 37 % (35-52); HEMOGLOBIN 11.9 g/dL (11.5-16.0); LYMPHOCYTES # (AUTO) 1.3 10^3/uL (1.0-4.0); LYMPHOCYTES % (AUTO) 16 % (12-44); MEAN CORPUSCULAR HEMOGLOBIN 29 pg (25-34); MEAN CORPUSCULAR HGB CONC 32 g/dL (32-36); MEAN CORPUSCULAR VOLUME 92 fL (80-99); MEAN PLATELET VOLUME 11.4 fL (9.0-12.2); MONOCYTES # (AUTO) 0.5 10^3/uL (0.0-1.0); MONOCYTES % (AUTO) 5 % (0-12); NEUTROPHILS # (AUTO) 6.3 10^3/uL (1.8-7.8); NEUTROPHILS % (AUTO) 75 % (42-75); PLATELET COUNT 196 10^3/uL (130-400); WHITE BLOOD COUNT 8.4 10^3/uL (4.3-11.0)
[2022-09-20 11:25] LABS: ALBUMIN 3.8 GM/DL (3.2-4.5); CHLORIDE 105 MMOL/L (98-107); POTASSIUM 4.2 MMOL/L (3.6-5.0); SODIUM 140 MMOL/L (135-145)
--- NOTE | 2022-09-20 11:25 | ED General ---
General Chief Complaint: Dizziness/Syncope Stated Complaint: DIZZY Nursing Triage Note: ARRIVED VIA WC TO ROOM 05 WITH COMPLAINTS OF DIZZINESS. STATES SHE WOKE UP WITH IT YESTERDAY MORNING AT 0400. Source of Information: Patient, Family Exam Limitations: No Limitations History of Present Illness Date Seen by Provider: Sep 20, 2022 Time Seen by Provider: 11:03 Initial Comments Patient here with her son and reports that she had dizziness this morning around 4 AM. Reports that she had dizziness yesterday in the morning as well. She states it woke her up and then she was able to rest for a bit and then it went away and she went back to sleep and was fine yesterday. This process repeated again this morning. Son reports that she had had stay at [facility] and here in May. She started here for chest pain and then had heart cath that showed blockages but too many and would be consideration for CABG. He reports they went to [place] where she had heart cath and stents placed as well as ballooning and then also had hiatal hernia surgery as well and was upper endoscopy. She was in the hospital for a few weeks and also had kidney failure at that time. She has recovered well but does have slightly worse short-term memory issues since then. She does live at home with her and she does quite well. She is only on Eliquis, atorvastatin, clopidogrel and montelukast. She has not had her morning meds. She is actually feeling better right now. She is answering questions well. She denies any pain or other complaint except for the dizziness this morning. Denies any recent falls or injury. Timing/Duration: 1-2 Days, Changing Over Time, Intermittent Severity: Moderate Associated Systoms: No Chest Pain, No Cough, No Fever/Chills, No Nausea/Vomi ting, No Shortness of Air; Weakness Allergies and Home Medications Allergies Coded Allergies: No Known Drug Allergies (Unverified , 08/04/22) Patient Home Medication List Home Medication List Reviewed: Yes Apixaban (Eliquis) 5 Mg Tablet, 5 MG PO BID, (Reported) Entered as Reported by: WYATT IYER on 08/04/221618 Atorvastatin Calcium (Atorvastatin Calcium) 40 Mg Tablet, 40 MG PO DAILY, (Reported) Entered as Reported by: WYATT IYER on 08/04/221618 Clopidogrel Bisulfate (Clopidogrel) 75 Mg Tablet, 75 MG PO DAILY, (Reported) Entered as Reported by: WYATT IYER on 08/04/22 1619 Fluticasone/Salmeterol (Advair Hfa 115-21 Mcg Inhaler) 115 Mcg-21 Mcg/Actuation Hfa.aer.ad, 2 PUFF INH HS, (Reported) Entered as Reported by: ESHA CHOUDHARY on 06/03/22 1051 Montelukast Sodium (Montelukast Sodium) 10 Mg Tablet, 10 MG PO HS, (Reported) Entered as Reported by: ESHA CHOUDHARY on 06/03/22 1051 Multivitamin (Multivitamin) 1 Each Tablet, 1 EACH PO HS, (Reported) Entered as Reported by: ESHA CHOUDHARY on 06/03/22 1051 Review of Systems Review of Systems Constitutional: No chills; dizziness; No fever; weakness EENTM: No nose congestion, No throat pain Respiratory: No cough, No short of breath Cardiovascular: No chest pain; Hx of Intervention Gastrointestinal: No nausea, No vomiting Genitourinary: No decreased output, No dysuria Musculoskeletal: No back pain; muscle weakness Skin: No lesions, No rash Psychiatric/Neurological: Denies Headache; Weakness All Other Systems Reviewed Negative Unless Noted: Yes Past Odncech-Faujqq-Segmyg Hx Patient Social History Tobacco Use?: Yes Smoking Status: Former Smoker Substance use?: No Alcohol Use?: No Immunizations Up To Date First/Initial COVID19 Vaccinat: NA Second COVID19 Vaccination Sathish: YES Third COVID19 Vaccination Date: NA COVID19 Vaccine Power Project Manager: UNKNOWN Past Medical History Surgery/Hospitalization HX: RIGHT MASTECTOMY, HTN, GERD, ESOPHAGEAL STRICTURE, COPD, ASTHMA, CAD WITH 3 STENT Surgeries: Yes Breast Respiratory: Yes Asthma Cardiac: Yes Atrial Fibrillation, Hypertension Neurological: No Genitourinary: No Gastrointestinal: Yes (History esophageal strictures) Gastroesophageal Reflux, Hiatal Hernia Musculoskeletal: No Endocrine: No Cancer: Yes Breast Did You Recieve Any Treatments: Yes What Type of Treatment Did You: Surgical Intervention Integumentary: No Family Medical History Reviewed Nursing Family Hx No Pertinent Family Hx Physical Exam Vital Signs Vital Signs - First Documented 09/20/22 10:15 Temp 36.3 Pulse 95 Resp 16 B/P (MAP) 146/108 (121) Pulse Ox 96 O2 Delivery Room Air Capillary Refill : Less Than 3 Seconds Height, Weight, BMI Height: 5'5.00" Weight: 192lbs. 0.0oz. 87.406007ib; 21.00 BMI Method:Stated General Appearance: No Apparent Distress, WD/WN HEENT: PERRL/EOMI, Other (Mucous membranes dry) Neck: Non Tender, Supple Respiratory: Lungs Clear, Normal Breath Sounds Cardiovascular: Systolic Murmur, Irregularly Irregular Gastrointestinal: Non Tender, Soft Back: Normal Inspection, No CVA Tenderness, No Vertebral Tenderness Extremity: Normal Range of Motion, Non Tender Neurologic/Psychiatric: Alert, Oriented x3 Skin: Normal Color, Warm/Dry Progress/Results/Core Measures Suspected Sepsis SIRS Temperature: Pulse: 95 Respiratory Rate: 16 Laboratory Tests 09/20/22 10:30: White Blood Count 8.4 Blood Pressure 146 /108 Mean: 121 Laboratory Tests 09/20/22 10:30: Creatinine 1.15, Platelet Count 196, Total Bilirubin 0.8 Results/Orders Lab Results Laboratory Tests Test 09/20/22 10:30 09/20/22 12:08 Range/Units White Blood Count 8.4 4.3-11.0 10^3/uL Red Blood Count 4.05 3.80-5.11 10^6/uL Hemoglobin 11.9 11.5-16.0 g/dL Hematocrit 37 35-52 % Mean Corpuscular Volume 92 80-99 fL Mean Corpuscular Hemoglobin 29 25-34 pg Mean Corpuscular Hemoglobin Concent 32 32-36 g/dL Red Cell Distribution Width 14.4 10.0-14.5 % Platelet Count 196 130-400 10^3/uL Mean Platelet Volume 11.4 9.0-12.2 fL Immature Granulocyte % (Auto) 0 % Neutrophils (%) (Auto) 75 42-75 % Lymphocytes (%) (Auto) 16 12-44 % Monocytes (%) (Auto) 5 0-12 % Eosinophils (%) (Auto) 3 0-10 % Basophils (%) (Auto) 1 0-10 % Neutrophils # (Auto) 6.3 1.8-7.8 10^3/uL Lymphocytes # (Auto) 1.3 1.0-4.0 10^3/uL Monocytes # (Auto) 0.5 0.0-1.0 10^3/uL Eosinophils # (Auto) 0.3 0.0-0.3 10^3/uL Basophils # (Auto) 0.1 0.0-0.1 10^3/uL Immature Granulocyte # (Auto) 0.0 0.0-0.1 10^3/uL Sodium Level 140 135-145 MMOL/L Potassium Level 4.2 3.6-5.0 MMOL/L Chloride Level 105 98-107 MMOL/L Carbon Dioxide Level 26 21-32 MMOL/L Anion Gap 9 5-14 MMOL/L Blood Urea Nitrogen 21 H 7-18 MG/DL Creatinine 1.15 0.60-1.30 MG/DL Estimat Glomerular Filtration Rate 47 BUN/Creatinine Ratio 18 Glucose Level 117 H 70-105 MG/DL Calcium Level 10.0 8.5-10.1 MG/DL Corrected Calcium 10.2 H 8.5-10.1 MG/DL Total Bilirubin 0.8 0.1-1.0 MG/DL Aspartate Amino Transf (AST/SGOT) 22 5-34 U/L Alanine Aminotransferase (ALT/SGPT) 25 0-55 U/L Alkaline Phosphatase 78 40-136 U/L Troponin I < 0.028 <0.028 NG/ML C-Reactive Protein High Sensitivity 0.14 0.00-0.50 MG/DL Total Protein 6.2 L 6.4-8.2 GM/DL Albumin 3.8 3.2-4.5 GM/DL Urine Color YELLOW Urine Clarity CLEAR Urine pH 6.5 5-9 Urine Specific [place] 1.020 1.016-1.022 Urine Protein TRACE H NEGATIVE Urine Glucose (UA) NEGATIVE NEGATIVE Urine Ketones NEGATIVE NEGATIVE Urine Nitrite POSITIVE H NEGATIVE Urine Bilirubin NEGATIVE NEGATIVE Urine Urobilinogen 1.0 < = 1.0 MG/DL Urine Leukocyte Esterase TRACE H NEGATIVE Urine RBC (Auto) NEGATIVE NEGATIVE Urine RBC 0-2 /HPF Urine WBC RARE /HPF Urine Squamous Epithelial Cells 0-2 /HPF Urine Crystals NONE /LPF Urine Bacteria NEGATIVE /HPF Urine Casts NONE /LPF Urine Mucus NEGATIVE /LPF Urine Culture Indicated NO My Orders Orders - JAYCEE PEÑA MD Ekg Tracing (09/20/22 10:07) Ed Iv/Invasive Line Start (09/20/22 11:14) Ns Iv 500 Ml (Sodium Chloride 0.9%) (09/20/22 11:15) Cbc With Automated Diff (09/20/22 11:14) Comprehensive Metabolic Panel (09/20/22 11:14) Hs C Reactive Protein (09/20/22 11:14) Troponin I [place] (09/20/22 11:14) Ua Culture If Indicated (09/20/22 11:14) Ct Head Wo (09/20/22 12:02) Meclizine Tablet (Antivert Tablet) (09/20/22 12:15) Ceftriaxone 1 Gm Pre-Mix (Rocephin 1 Gm (09/20/22 13:15) Medications Given in ED Current Medications Medications Dose Ordered Sig/Tari Route Start Time Stop Time Status Last Admin Dose Admin Meclizine HCl 25 mg ONCE ONCE PO 09/20/22 12:15 09/20/22 12:16 DC 09/20/22 12:20 25 MG Sodium Chloride 500 ml @ 0 mls/hr Q0M ONCE IV 09/20/22 11:15 09/20/22 11:17 DC 09/20/22 11:20 500 MLS/HR Vital Signs/I&O 09/20/22 10:15 Temp 36.3 Pulse 95 Resp 16 B/P (MAP) 146/108 (121) Pulse Ox 96 O2 Delivery Room Air Capillary Refill : Less Than 3 Seconds Blood Pressure Mean: 121 Progress Note : Progress Note Seen and evaluated. IV, labs, UA and EKG ordered. We will check CBC, CMP and troponin. Normal saline 500 mL bolus due to concerns for dehydration. Differential includes dehydration, electrolyte abnormality, arrhythmia and cardiac dysfunction. Monitor patient. Echo report from 06/03/22 shows EF of 50 to 55% with moderate aortic stenosis. Also has regurg in the other valves. 1318: CT head ordered due to dizziness and patient being on Eliquis. This did not show any significant abnormalities other than age-related findings. I did give meclizine 25 mg p.o. She is doing a little bit better now. UA does show nitrite positive urine. This indicates urinary tract infection. We will go ahead and treat this. Given the patient's current status with dizziness but improving, I will go ahead and do first dose IV just to help improve speed for resolution and minimize risk of significant worsening. We will then do outpatient prescription of cephalexin twice daily for 5 days. This was discussed with patient and family who agree. CBC does not show any significant abnormality. Chemistry shows renal function normal level with normal electrolytes. UA does show nitrite positive urinary tract infection and slightly concentrated urine. Discharged home with return precautions. Patient and family verbalized understand instructions and agreement with plan. ECG Initial ECG Impression Date: Sep 20, 2022 Initial ECG Impression Time: 10:17 Initial ECG Rate: 90 Initial ECG Rhythm: A Fib/Flutter Initial ECG Impression: Atrial Fibrillation Comment Atrial fibrillation with normal axis. No evidence of ST elevation CO. Interpreted by me. Diagnostic Imaging Diagonstic Imaging: CT Plain Films/CT/US/NM/MRI: head Comments [facility], [place] NAME: JO LOPEZ REC#: [id number] PT STATUS: REG ER : 1935 PHYSICIAN: JAYCEE PEÑA MD ADMIT DATE: 09/20/22/ER Draft Date of Exam:09/20/22 CT HEAD WO Clinical indications: Patient with dizziness since yesterday. Exam: Axial CT scan of the brain without IV contrast with coronal and sagittal reformatted images. Auto Exposure Controls were utilized during the CT exam to meet ALARA standards for radiation dose reduction. Comparison: None Findings: There is no evidence of acute cerebral infarct, intracranial hemorrhage, or gross mass effect. The brain parenchymal volume appears appropriate for patient's age. There are small patchy areas of low-attenuation white matter changes involving white matter of both cerebral hemispheres, likely representing chronic small vessel ischemic disease. There is normal jimenez-white matter distinction. There is no significant midline shift or herniation. There is no evidence of hydrocephalus. The basal cisterns are unremarkable. The skull, extracranial soft tissue, and orbits are unremarkable. The paranasal sinuses are unremarkable. Temporal bones show no significant abnormality. Impression: 1: There is no evidence of acute intracranial process. 2: Mild age-related brain parenchymal changes. Dictated on workstation # [id number] Dict: 09/20/22 1241 Trans: 09/20/22 1245 CV [id number] Interpreted by: GUS CHRISTIANSEN MD Electronically signed by: Departure Impression Primary Impression: Urinary tract infection Qualified Codes: N30.00 - Acute cystitis without hematuria Additional Impressions: Dizziness Dehydration Disposition: 01 HOME, SELF-CARE Condition: Improved Departure-Patient Inst. Decision time for Depature: 13:21 Referrals: ROBB FRIED MD (PCP/Family) Primary Care Physician Patient Instructions: Dizziness, Adult ED, Urinary Tract Infection, Adult ED, Vertigo (a Type of Dizziness) (DC) Add. Discharge Instructions: All discharge instructions reviewed with patient and/or family. Voiced understanding. Drinking adequate amount of fluids to keep urine light yellow. Take medications as directed. Follow-up with your doctor in a few days for recheck and further evaluation as needed. You may take [id number] meclizine 25 mg 1 tablet every 8 hours as needed for dizziness. Continue other medications as previously prescribed. Return for worse pain, fever, vomiting, weakness, dizziness, chest pain, breathing problems or other concerns as needed. JAYCEE PEÑA MD Sep 20, 2022 11:25
[2022-09-20 11:27] LABS: GLUCOSE 117 MG/DL (70-105); TOTAL PROTEIN 6.2 GM/DL (6.4-8.2)
[2022-09-20 11:28] LABS: CARBON DIOXIDE 26 MMOL/L (21-32)
[2022-09-20 11:29] LABS: BILIRUBIN,TOTAL 0.8 MG/DL (0.1-1.0)
[2022-09-20 11:31] LABS: ALKALINE PHOSPHATASE 78 U/L (40-136); CREATININE SERUM 1.15 MG/DL (0.60-1.30); GFR ESTIMATED 47
[2022-09-20 11:32] LABS: BUN/CREATININE RATIO 18
[2022-09-20 11:34] LABS: ALANINE AMINOTRANSFERASE 25 U/L (0-55)
[2022-09-20] MEDS ORDERED: MECLIZINE 25 MG (ANTIVERT) TAB PO ONE (12:15)
[2022-09-20 12:16] LABS: BILIRUBIN,URINE NEGATIVE (NEGATIVE); CLARITY,URINE CLEAR; COLOR,URINE YELLOW; GLUCOSE, URINE (UA) NEGATIVE (NEGATIVE); KETONES,URINE NEGATIVE (NEGATIVE); LEUKOCYTE ESTERASE ,URINE TRACE (NEGATIVE); NITRITE,URINE POSITIVE (NEGATIVE); PH,URINE 6.5 (5-9); PROTEIN,URINE TRACE (NEGATIVE)
[2022-09-20 12:29] LABS: BACTERIA,URINE NEGATIVE /HPF; RBC,URINE 0-2 /HPF; SQUAMOUS EPITHELIAL CELL,UR 0-2 /HPF; WBC,URINE RARE /HPF
--- NOTE | 2022-09-20 12:45 | Diagnostic Imaging Report ---
Clinical indications: Patient with dizziness since yesterday. Exam: Axial CT scan of the brain without IV contrast with coronal and sagittal reformatted images. Auto Exposure Controls were utilized during the CT exam to meet ALARA standards for radiation dose reduction. Comparison: None Findings: There is no evidence of acute cerebral infarct, intracranial hemorrhage, or gross mass effect. The brain parenchymal volume appears appropriate for patient's age. There are small patchy areas of low-attenuation white matter changes involving white matter of both cerebral hemispheres, likely representing chronic small vessel ischemic disease. There is normal jimenez-white matter distinction. There is no significant midline shift or herniation. There is no evidence of hydrocephalus. The basal cisterns are unremarkable. The skull, extracranial soft tissue, and orbits are unremarkable. The paranasal sinuses are unremarkable. Temporal bones show no significant abnormality. Impression: 1: There is no evidence of acute intracranial process. 2: Mild age-related brain parenchymal changes. Dictated by: Dictated on workstation # [id number]
[2022-09-20] MEDS ORDERED: cefTRIAXone 1 GM PRE-MIX 50 ML IV STA (13:15)
[2022-09-20] MEDS ORDERED: CEPH500C PO (13:27)
[2022-09-20 13:56] VITALS: BP 149/84
== END 2022-09-20 13:56 | disposition home or self-care (01) ==
LOC: EDUNIT# 10:02 → ER 10:04
DX: N39.0 Urinary tract infection, site not specified (principal); R42 Dizziness and giddiness; E86.0 Dehydration; I25.810 Atherosclerosis of coronary artery bypass graft(s) without angina pectoris; Z79.01 Long term (current) use of anticoagulants; Z87.891 Personal history of nicotine dependence; Z28.310 Unvaccinated for COVID-19
CPT/HCPCS: 36415; 70450; 80053; 81000; 84484; 85025; 86141; 93005; 96361; 96374

== ENCOUNTER → 2023-02-21 | Outpatient (CLI) | payer MEDICARE, BC, OTHER ==
[~2023-02-21] MED LIST changes: +CEPH500C PO
== END ==
LOC: CARD 09:04
PROVIDERS: ATTEND Internal Medicine Cardiovascular Disease
DX: I08.3 Combined rheumatic disorders of mitral, aortic and tricuspid valves (principal); I11.9 Hypertensive heart disease without heart failure; I25.10 Atherosclerotic heart disease of native coronary artery without angina pectoris
CPT/HCPCS: 93306

== ENCOUNTER 2023-05-07 17:01 | Emergency (ER) | payer MEDICARE, BC, OTHER ==
[~2023-05-07] VITALS: Ht 165 cm; Wt 61.0 kg
--- NOTE | 2023-05-07 17:34 | ED Respiratory ---
General Chief Complaint: Respiratory Problems Stated Complaint: SOA Source: patient, family Exam Limitations: no limitations History of Present Illness Date Seen by Provider: May 07, 2023 Time Seen by Provider: 17:20 Initial Comments 87-year-old female presents to the ER with son for complaint of intermittent shortness of air starting last night. She states that she woke up with shortness of air. States that the shortness of breath has been intermittent throughout the day. She states there is no pattern to it, sometimes it occurs when she is walking, sometimes it occurs when she is sitting. She denies fevers, chest pain, abdominal pain, nausea, vomiting, diarrhea. Past medical history includes atrial fibrillation, hypertension, non-STEMI. She currently takes Plavix, Eliquis, atorvastatin, montelukast. Allergies and Home Medications Allergies Coded Allergies: No Known Drug Allergies (Unverified , 08/04/22) Patient Home Medication List Home Medication List Reviewed: Yes Amoxicillin/Potassium Clav (Amox Tr-K Clv 875-125 mg Tab) 875 Mg-125 Mg Tablet, 1 EACH PO BID Prescribed by: Lisa Osullivan on 05/07/23 1843 Apixaban (Eliquis) 5 Mg Tablet, 5 MG PO BID, (Reported) Entered as Reported by: WYATT IYER on 08/04/22 1619 Atorvastatin Calcium (Atorvastatin Calcium) 40 Mg Tablet, 40 MG PO DAILY, (Reported) Entered as Reported by: WYATT IYER on 08/04/22 1619 Azithromycin (Azithromycin) 250 Mg Tablet, 250 MG PO DAILY Prescribed by: Lisa Osullivan on 05/07/23 1843 Cephalexin (Cephalexin) 500 Mg Capsule, 500 MG PO BID Prescribed by: JAYCEE PEÑA on 09/20/22 1327 Clopidogrel Bisulfate (Clopidogrel) 75 Mg Tablet, 75 MG PO DAILY, (Reported) Entered as Reported by: WYATT IYER on 08/04/22 1619 Fluticasone/Salmeterol (Advair Hfa 115-21 Mcg Inhaler) 115 Mcg-21 Mcg/Actuation Hfa.aer.ad, 2 PUFF INH HS, (Reported) Entered as Reported by: ESHA CHOUDHARY on 06/03/22 1051 Montelukast Sodium (Montelukast Sodium) 10 Mg Tablet, 10 MG PO HS, (Reported) Entered as Reported by: ESHA CHOUDHARY on 06/03/22 1051 Multivitamin (Multivitamin) 1 Each Tablet, 1 EACH PO HS, (Reported) Entered as Reported by: ESHA CHOUDHARY on 06/03/22 1051 Review of Systems Review of Systems Constitutional: see HPI Past Jwptpep-Svynzx-Vtmjxl Hx Patient Social History Tobacco Use?: No Use of E-Cig and/or Vaping dev: No Use of E-Cig and/or Vaping Joey: Never a User Substance use?: No Alcohol Use?: No Pt feels they are or have been: No Immunizations Up To Date Influenza Vaccine Up-to-Date: Yes; Up-to-Date First/Initial COVID19 Vaccinat: NA Second COVID19 Vaccination Sathish: YES Third COVID19 Vaccination Date: NA Past Medical History Surgery/Hospitalization HX: RIGHT MASTECTOMY, HTN, GERD, ESOPHAGEAL STRICTURE, COPD, ASTHMA, CAD WITH 3 STENT Surgeries: Yes Breast Respiratory: Yes Asthma Cardiac: Yes Atrial Fibrillation, Hypertension Neurological: No Genitourinary: No Gastrointestinal: Yes (History esophageal strictures) Gastroesophageal Reflux, Hiatal Hernia Musculoskeletal: No Endocrine: No Cancer: Yes Breast Did You Recieve Any Treatments: Yes What Type of Treatment Did You: Surgical Intervention Integumentary: No Family Medical History No Pertinent Family Hx Physical Exam Vital Signs - First Documented 05/07/23 05/07/23 17:20 18:50 Temp 36.4 Pulse 98 Resp 20 B/P (MAP) 150/95 (113) Pulse Ox 92 O2 Delivery Room Air Capillary Refill : Less Than 3 Seconds Height: 5'5.00" Weight: 192lbs. 0.0oz. 87.680626iz; 21.00 BMI Method:Stated General Appearance: WD/WN, no apparent distress Neck: supple, normal inspection Respiratory: lungs clear, normal breath sounds, no respiratory distress, no accessory muscle use Cardiovascular: systolic murmur, irregularly irregular Extremities: normal inspection, pedal edema (1+) Neurologic/Psychiatric: alert, normal mood/affect Skin: normal color, warm/dry Progress/Results/Core Measures Suspected Sepsis SIRS Temperature: Pulse: Respiratory Rate: Laboratory Tests 05/07/23 17:14: White Blood Count 8.6 Blood Pressure / Mean: Laboratory Tests 05/07/23 17:14: Creatinine 1.01, INR Comment 1.1, Platelet Count 240, Total Bilirubin 0.9 Results/Orders Lab Results Laboratory Tests Test 05/07/23 17:14 Range/Units White Blood Count 8.6 4.3-11.0 10^3/uL Red Blood Count 4.61 3.80-5.11 10^6/uL Hemoglobin 13.2 11.5-16.0 g/dL Hematocrit 43 35-52 % Mean Corpuscular Volume 93 80-99 fL Mean Corpuscular Hemoglobin 29 25-34 pg Mean Corpuscular Hemoglobin Concent 31 L 32-36 g/dL Red Cell Distribution Width 15.6 H 10.0-14.5 % Platelet Count 240 130-400 10^3/uL Mean Platelet Volume 11.1 9.0-12.2 fL Immature Granulocyte % (Auto) 0 % Neutrophils (%) (Auto) 61 42-75 % Lymphocytes (%) (Auto) 24 12-44 % Monocytes (%) (Auto) 7 0-12 % Eosinophils (%) (Auto) 7 0-10 % Basophils (%) (Auto) 1 0-10 % Neutrophils # (Auto) 5.2 1.8-7.8 10^3/uL Lymphocytes # (Auto) 2.1 1.0-4.0 10^3/uL Monocytes # (Auto) 0.6 0.0-1.0 10^3/uL Eosinophils # (Auto) 0.6 H 0.0-0.3 10^3/uL Basophils # (Auto) 0.1 0.0-0.1 10^3/uL Immature Granulocyte # (Auto) 0.0 0.0-0.1 10^3/uL Prothrombin Time 14.1 12.2-14.7 SEC INR Comment 1.1 0.8-1.4 Activated Partial Thromboplast Time 30 24-35 SEC D-Dimer 0.46 0.00-0.49 UG/ML Sodium Level 140 135-145 MMOL/L Potassium Level 4.2 3.6-5.0 MMOL/L Chloride Level 104 98-107 MMOL/L Carbon Dioxide Level 25 21-32 MMOL/L Anion Gap 11 5-14 MMOL/L Blood Urea Nitrogen 22 H 7-18 MG/DL Creatinine 1.01 0.60-1.30 MG/DL Estimat Glomerular Filtration Rate 54 BUN/Creatinine Ratio 22 Glucose Level 73 70-105 MG/DL Calcium Level 9.9 8.5-10.1 MG/DL Corrected Calcium 9.7 8.5-10.1 MG/DL Magnesium Level 1.9 1.6-2.4 MG/DL Total Bilirubin 0.9 0.1-1.0 MG/DL Aspartate Amino Transf (AST/SGOT) 77 H 5-34 U/L Alanine Aminotransferase (ALT/SGPT) 106 H 0-55 U/L Alkaline Phosphatase 127 40-136 U/L B-Type Natriuretic Peptide 538.1 H <100.0 PG/ML Total Protein 7.0 6.4-8.2 GM/DL Albumin 4.3 3.2-4.5 GM/DL My Orders Orders - LISA MICHELE STRAIGHTENING MACHINE FEEDER Cbc With Automated Diff (05/07/23 17:27) Magnesium (05/07/23 17:27) Chest 1 View, Ap/Pa Only (05/07/23 17:27) Comprehensive Metabolic Panel (05/07/23 17:27) Protime With Inr (05/07/23 17:27) Partial Thromboplastin Time (05/07/23 17:27) Monitor-Rhythm Ecg Trace Only (05/07/23 17:27) Ed Iv/Invasive Line Start (05/07/23 17:27) Bnp [place] (05/07/23 17:27) Fibrin Degradation Products (05/07/23 17:27) Amoxicillin/Clavulanate Tablet (Amoxicil (05/07/23 18:45) Azithromycin Tablet (Azithromycin Tabl (05/07/23 18:45) Vital Signs/I&O 05/07/23 05/07/23 17:20 18:50 Temp 36.4 36.0 Pulse 98 103 Resp 20 22 B/P (MAP) 150/95 (113) 147/95 Pulse Ox 92 O2 Delivery Room Air Capillary Refill : Less Than 3 Seconds Progress Note : Progress Note Patient seen and evaluated, resting comfortably in bed, no acute distress. Based on exam and symptoms, work-up initiated including CBC, CMP, magnesium, coags, D-dimer, BNP, EKG, chest x-ray. 1840 Labs and x-ray reviewed. CBC grossly normal. CMP grossly normal, BUN slightly elevated 22. BNP elevated 538. Coags normal. D-dimer one 0.46. Chest x-ray bibasilar interstitial opacities. Stable cardiomegaly without significant central pulmonary vascular congestion. I believe this might be pneumonia developing. Results discussed with patient. Patient given the option of admission based on curb score of 2 because of slightly elevated BUN and age over 65 which places her at a moderate risk. Patient would like to go home. I agree that this is an appropriate option, patient looks well, vitals are stable, labs look well except for slightly elevated BUN. Patient also has a follow-up appointment with her primary care provider tomorrow. Will discharge with antibiotics for pneumonia. Patient instructed to follow-up with her automat car attendant regarding her elevated BNP. Discharge instructions and return precautions provided. ECG Initial ECG Impression Date: May 07, 2023 Initial ECG Impression Time: 17:15 Initial ECG Rate: 84 Initial ECG Rhythm: A Fib/Flutter Initial ECG Intervals: Normal Initial ECG Impression: Atrial Fibrillation Initial ECG Comparisson: Unchanged Departure Impression Primary Impression: Pneumonia Qualified Codes: J18.9 - Pneumonia, unspecified organism Additional Impression: Elevated brain natriuretic peptide (BNP) level Disposition: 01 HOME, SELF-CARE Condition: Stable Departure-Patient Inst. Decision time for Depature: 18:40 Referrals: ROBB FRIED MD (PCP/Family) Primary Care Physician Patient Instructions: Pneumonia, Adult (DC) Add. Discharge Instructions: Complete full course of both antibiotics as prescribed. Follow-up with your primary care provider tomorrow as scheduled. Follow-up with Dr. Kumar regarding your elevated BNP. Return if your shortness of breath becomes worse, you develop chest pain, or any other new, concerning, or worsening symptoms. All discharge instructions reviewed with patient and/or family. Voiced understanding. Scripts Azithromycin (Azithromycin) 250 Mg Tablet 250 MG PO DAILY for 4 Days, #4 TAB 0 Refills TAKE 2 TABLETS ON DAY ONE THEN TAKE 1 TABLET DAILY FOR FOUR MORE DAYS Prov: LISA MICHELE APRN 05/07/23 Amoxicillin/Potassium Clav (Amox Tr-K Clv 875-125 mg Tab) 875 Mg-125 Mg Tablet 1 EACH PO BID for 7 Days, #13 TAB 0 Refills Prov: LISA MICHELE APRN 05/07/23 LISA MICHELE APRN May 07, 2023 17:34
[2023-05-07 17:35] LABS: BASOPHILS # (AUTO) 0.1 10^3/uL (0.0-0.1); BASOPHILS % (AUTO) 1 % (0-10); EOSINOPHILS # (AUTO) 0.6 10^3/uL (0.0-0.3); EOSINOPHILS % (AUTO) 7 % (0-10); HEMATOCRIT 43 % (35-52); HEMOGLOBIN 13.2 g/dL (11.5-16.0); LYMPHOCYTES # (AUTO) 2.1 10^3/uL (1.0-4.0); LYMPHOCYTES % (AUTO) 24 % (12-44); MEAN CORPUSCULAR HEMOGLOBIN 29 pg (25-34); MEAN CORPUSCULAR HGB CONC 31 g/dL (32-36); MEAN CORPUSCULAR VOLUME 93 fL (80-99); MEAN PLATELET VOLUME 11.1 fL (9.0-12.2); MONOCYTES # (AUTO) 0.6 10^3/uL (0.0-1.0); MONOCYTES % (AUTO) 7 % (0-12); NEUTROPHILS # (AUTO) 5.2 10^3/uL (1.8-7.8); NEUTROPHILS % (AUTO) 61 % (42-75); PLATELET COUNT 240 10^3/uL (130-400); WHITE BLOOD COUNT 8.6 10^3/uL (4.3-11.0)
[2023-05-07 17:41] LABS: ALBUMIN 4.3 GM/DL (3.2-4.5); INR 1.1 (0.8-1.4); POTASSIUM 4.2 MMOL/L (3.6-5.0); PROTHROMBIN TIME PATIENT 14.1 SEC (12.2-14.7)
[2023-05-07 17:42] LABS: CALCIUM 9.9 MG/DL (8.5-10.1)
[2023-05-07 17:44] LABS: FIBRIN DEGRADATION PRODUCTS 0.46 UG/ML (0.00-0.49)
[2023-05-07 17:45] LABS: BILIRUBIN,TOTAL 0.9 MG/DL (0.1-1.0)
[2023-05-07 17:47] LABS: CREATININE SERUM 1.01 MG/DL (0.60-1.30)
[2023-05-07 17:50] LABS: MAGNESIUM 1.9 MG/DL (1.6-2.4)
--- NOTE | 2023-05-07 17:51 | Diagnostic Imaging Report ---
INDICATION: Chest pain. COMPARISON: 06/01/2022. TECHNIQUE: Single radiograph of the chest dated 05/07/2023. FINDINGS: Surgical clips overlying the right axilla are again identified. The cardiac silhouette is enlarged, though stable. No significant pulmonary vascular congestion. Background senescent changes of the lungs are again identified, though increasing right greater than left bibasilar interstitial opacities are present. No significant pleural effusion. No pneumothorax. No acute osseous abnormality. IMPRESSION: 1. Right greater than left bibasilar atelectasis and/or pneumonitis superimposed upon background senescent changes of the lungs. 2. Stable cardiomegaly without significant central pulmonary vascular congestion. Dictated by: Dictated on workstation # [id number]
[2023-05-07] MEDS ORDERED: AMOX1TAB12 PO (18:43)
[2023-05-07] MEDS ORDERED: AZIT250T12 PO (18:43)
[2023-05-07] MEDS ORDERED: AZITHROMYCIN 250 MG TABLET PO ONE (18:45)
[2023-05-07] MEDS ORDERED: AMOXICILLIN/Clavulanate 875 MG TABLET PO ONE (18:45)
[2023-05-07 18:50] VITALS: BP 147/95
== END 2023-05-07 18:50 | disposition home or self-care (01) ==
LOC: EDUNIT# 17:01 → ER 17:03
DX: J18.9 Pneumonia, unspecified organism (principal); I48.91 Unspecified atrial fibrillation; I25.2 Old myocardial infarction; R79.89 Other specified abnormal findings of blood chemistry; I51.7 Cardiomegaly; Z79.01 Long term (current) use of anticoagulants; Z79.02 Long term (current) use of antithrombotics/antiplatelets; Z79.899 Other long term (current) drug therapy
CPT/HCPCS: 36415; 71045; 80053; 83735; 83880; 85025; 85379; 85610; 85730; 93005; 93041